=== PATIENT | female | born 1955 | race Hispanic/Latino ===

== ENCOUNTER 2018-05-11 20:25 | Observation (INO) | payer SELFPAY ==
--- NOTE | 2018-05-11 21:12 | RAD ---
RADIOGRAPH CHEST 1 VIEW: 05/11/18 at 9:08 p.m. HISTORY: 62-year-old female with chest pain. FINDINGS: There are no air space densities, pulmonary edema, or pneumothorax. The lateral costophrenic angles are sharp. IMPRESSION: No acute pulmonary findings. daniel pedraza POS: [facility]
[2018-05-11 21:26] LABS: ALT (SGPT) 10 U/L (8-55); AST (SGOT) 13 U/L (5-34); Albumin 4.1 g/dL (3.5-5.0); Alkaline Phosphatase 72 U/L (40-150); Anion Gap 13 mmol/L (10-20); BUN (Urea Nitrogen) 17 mg/dL (9.8-20.1); Bilirubin, Total 0.4 mg/dL (0.2-1.2); CK (CPK) 25 U/L (29-168); Calc. Creatinine Clearance 0 mL/min (70-130); Calcium 9.7 mg/dL (7.8-10.44); Carbon Dioxide 25 mmol/L (22-29); Chloride 109 mmol/L (98-107); Estimated GFR-MDRD 84; Globulin 3.3 g/dL (2.4-3.5); Glucose 121 mg/dL (70-105); Protein, Total 7.4 g/dL (6.0-8.3); Sodium 143 mmol/L (136-145)
[2018-05-11 21:47] LABS: #Basophils 0.1 thou/uL (0.0-0.2); #Eosinphils 0.2 thou/uL (0.0-0.7); #Lymphocytes 2.5 thou/uL (1.20-3.40); #Monocytes 0.3 thou/uL (0.11-0.59); #Neutrophils 2.8 thou/uL (1.40-6.50); %Basophils 0.9 % (0.0-1.0); %Eosinophils 2.8 % (0.0-10.0); %Lymphocytes 43.3 % (21.0-51.0); %Monocytes 4.8 % (0.0-10.0); %Neutrophils 48.2 % (42.0-75.0); Anisocytosis SLIGHT = 6-15 cells (100X) (0-5/hpf); Hemoglobin 11.5 g/dL (12.0-16.0); MDiff Complete? YES; Macrocytosis SLIGHT = 6-15 cells (100X) (0-5/hpf); Mean Corpuscular HGB CONC 36.9 g/dL (32.0-36.0); Mean Corpuscular Hemoglobin 46.2 pg (27.0-31.0); Mean Platelet Volume 6.7 fL (7.4-10.4); PLT Morphology Comment Appears Adequate; Platelet Count 155 thou/uL (130-400); RBC Distribution Width 11.9 % (11.5-14.5); Red Blood Cell (RBC) Count 2.49 mill/uL (4.20-5.40); Spherocytes SLIGHT = 1-5 cells (100X) (None Seen); Stomatocytes SLIGHT = 2-5 cells (100X) (0-1/hpf); White Blood Cell (WBC) Count 5.8 thou/uL (4.8-10.8)
[2018-05-11] MEDS ORDERED: Acetaminophen 500 MG TAB ONE (22:56)
[2018-05-12 01:04] VITALS: BMI 26.1
[2018-05-12 01:09] LABS: Troponin I 0.011 ng/mL (< 0.028)
[2018-05-12] MEDS: Ibuprofen 200 MG TAB PO PRN ×2 (02:03→09:22)
[2018-05-12] MEDS ORDERED: Benzonatate 100 MG CAP PO PRN (03:44)
[2018-05-12 03:46] LABS: Troponin I 0.011 ng/mL (< 0.028)
[2018-05-12] MEDS ORDERED: Regadenoson 0.4 MG/5 ML SYRINGE ONE (09:59)
[2018-05-12 10:19] LABS: ALT (SGPT) 9 U/L (8-55); AST (SGOT) 13 U/L (5-34); Albumin 3.7 g/dL (3.5-5.0); Alkaline Phosphatase 69 U/L (40-150); Anion Gap 10 mmol/L (10-20); BUN (Urea Nitrogen) 18 mg/dL (9.8-20.1); Bilirubin, Total 0.7 mg/dL (0.2-1.2); Calc. Creatinine Clearance 100 mL/min (70-130); Calcium 9.3 mg/dL (7.8-10.44); Carbon Dioxide 27 mmol/L (22-29); Cardiac Risk 3.2 (Less than 4.5); Chloride 108 mmol/L (98-107); Cholesterol 177 mg/dl (< 200 Desired); Estimated GFR-MDRD Greater than 90; Glucose 98 mg/dL (70-105); HDL Cholesterol 56 mg/dL (>60 Neg Risk); LDL Cholesterol, Calculated 98 mg/dL; Potassium 3.8 mmol/L (3.5-5.1); Protein, Total 6.7 g/dL (6.0-8.3); Sodium 141 mmol/L (136-145); Triglycerides 116 mg/dL (Less than 150)
[2018-05-12 10:21] LABS: #Eosinphils 0.2 thou/uL (0.0-0.7); #Lymphocytes 1.8 thou/uL (1.20-3.40); #Monocytes 0.3 thou/uL (0.11-0.59); #Neutrophils 2.4 thou/uL (1.40-6.50); %Basophils 0.3 % (0.0-1.0); %Eosinophils 3.7 % (0.0-10.0); %Lymphocytes 39.6 % (21.0-51.0); %Monocytes 5.6 % (0.0-10.0); %Neutrophils 50.8 % (42.0-75.0); Hemoglobin 11.4 g/dL (12.0-16.0); Mean Corpuscular HGB CONC 33.3 g/dL (32.0-36.0); Mean Corpuscular Hemoglobin 45.7 pg (27.0-31.0); Mean Platelet Volume 7.5 fL (7.4-10.4); Platelet Count 199 thou/uL (130-400); Red Blood Cell (RBC) Count 2.49 mill/uL (4.20-5.40); White Blood Cell (WBC) Count 4.7 thou/uL (4.8-10.8)
--- NOTE | 2018-05-12 14:26 | NM ---
NUCLEAR MEDICINE CARDIAC STRESS WITH EJECTION FRACTION AND WALL MOTION: HISTORY: Chest pain. COMPARISON: None. TECHNIQUE: The patient was administered 9.5 mCi of technetium-99m sestamibi for rest imaging and 32.2 mCi of freddy hnetium-99m sestamibi for stress imaging. Cardiac gating is performed. FINDINGS: Homogeneous distribution of the radiotracer in the left ventricle. No reversibility. No fixed defect. TID is 1.16. End-diastolic volume is 68 mL. End-systolic volume is 19 mL. CARDIAC GATING: Normal motion and thickening. 73% ejection fraction. IMPRESSION: 1. No reversible or fixed defect. 2. 73% ejection fraction. POS: [facility]
[2018-05-12 16:17] VITALS: BP 103/53; TEMP 97.8
--- NOTE | 2018-05-12 18:29 | HP ---
PRIMARY CARE PHYSICIAN: [facility]. CHIEF COMPLAINT: Chest pain, cough, and shortness of breath. HISTORY OF PRESENT ILLNESS: The patient reports she has been having intermittent chest pain and shortness of breath with exertion, worsening over the last month. The patient has a history of an MS several years ago and this feels similar to when she had that. She does report a cough, which is productive, which has been ongoing for the last 3 days. She is a smoker, reports smoking about half a pack a day. Reports that she does have morning coughing spells, but this is different. Does have some nasal congestion. Denies any fever or chills. Does have a history of hypertension, but reports she quit taking her medicine because it made her feel weak and fatigued more than normal. Family reports that she is normally very active. 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 Based on her symptoms and risk factors, decision was made to admit her to the observation unit. PAST MEDICAL HISTORY: Myocardial infarction many years ago. Reports history of hypertension. MEDICATIONS: She takes Tylenol and Motrin as needed. Reports that she is unable to remember the name of her blood pressure medication. PAST SURGICAL HISTORY: None. ALLERGIES: NONE. FAMILY HISTORY: Both parents had coronary artery disease. She denies any diabetes in the family. SOCIAL HISTORY: . Smokes half pack a day and has for many years. Drinks about 6 beers per day. REVIEW OF SYSTEMS: GENERAL: The patient reports some blurry vision, but reports that she wears reading glasses, which help. Denies any lightheadedness. EARS, NOSE, AND THROAT: Denies any ear pain or drainage. Denies any nasal bleeding. No trouble swallowing. CARDIAC: No orthopnea or dyspnea on exertion. RESPIRATORY: No wheezing. No asthma. She does have a productive cough for the last 3 days. This is in addition to her morning coughing spells that is productive of mucus. Does have a runny nose. GASTROINTESTINAL: Reports some mild nausea. Denies any vomiting, diarrhea, or abdominal pain. GENITOURINARY: Female. Denies any dysuria or hematuria. MUSCULOSKELETAL: No specific joint complaints. No swelling in her legs. No fall or injury. NEUROLOGIC: Denies any focal weakness or sensory changes. PSYCH: No history of any anxiety or depression. SKIN: No bruising, bleeding, or rash. HEME/LYMPH: No tender lymph nodes are noted. PHYSICAL EXAMINATION: VITAL SIGNS: Blood pressure 119/58, temperature is 98.1, pulse is 71, respiratory rate is 22, and she has 96% on room air. HEENT: Pupils are equal, round, and reactive. Extraocular muscles are intact. Sclerae are white. Nose has clear exudate. Mucous membranes are moist. Dental hygiene is good. NECK: Supple without JVD. No adenopathy. CHEST: Clear to auscultation. No respiratory distress. HEART: Regular rate and rhythm. S1 and S2. No murmurs or gallops. ABDOMEN: Soft. Bowel sounds are normal. EXTREMITIES: No cyanosis, clubbing, or edema. Pulses; radial, femoral, and pedis pulses are palpable and symmetric. SKIN: Warm, dry, and normal in color. JOINTS: No acute inflammation, swelling, or deformity. NEUROLOGIC: Moves all extremities. Deep tendon reflexes are symmetric. DIAGNOSTIC DATA: EKG done in the emergency room shows a normal sinus rhythm, 81 beats per minute, no ectopics, ST segments are normal, and T-waves are normal. LABORATORY DATA: The patient had a chest x-ray, which showed no acute pulmonary findings. White blood cell count is 4.7, hemoglobin is 11.4, hematocrit 34.2, and platelet counts are 199. Sodium 141, potassium 3.8, chloride 108, gap is 10, BUN is 18, creatinine is 0.61, GFR is estimated over 90, and glucose is 98. Troponin x3 are all lower than 0.010, which is undetectable. BNP is 30. Liver enzymes are unremarkable. Cholesterol; triglycerides are 116, total cholesterol is 177, LDL is 98, and HDL is 56. TSH is 3.49. ASSESSMENT AND PLAN: 1. Chest pain with dyspnea on exertion and increased fatigue. We will obtain an echocardiogram, do a stress test. 2. Cough. May repeat 2-view x-ray, provide antitussives. 3. History of hypertension. We will monitor blood pressure. 4. We will perform deep vein thrombosis and gastrointestinal prophylaxis while she is hospitalized. 5. Hospital course will be depending on clinical findings. Job ID: [id number]
--- NOTE | 2018-05-12 19:17 | CON ---
DATE OF CONSULTATION: 05/12/2018 REASON FOR CONSULTATION: Chest pain. HISTORY OF PRESENT ILLNESS: Ms. Paz is a pleasant 62-year-old female, who comes to the hospital for chest pain. I have seen her one time in the past in 2014. At which point, she came in complaining of chest pain. She was taken to the catheterization lab at that time and was found to have mild coronary artery disease. She was discharged home. I have never seen her in followup since. She came back because she was having episodes of chest pain, it was midsternal in nature. She underwent stress test later today. PAST MEDICAL HISTORY: 1. Mild coronary artery disease and heart catheterization 3 years ago. 2. GERD. MEDICATIONS: 1. Spiriva. 2. DuoNeb. 3. Ibuprofen. 4. Protonix 20 mg. 5. Tessalon Perles. PAST SURGICAL HISTORY: None. ALLERGIES: NO KNOWN DRUG ALLERGIES. FAMILY HISTORY: Mother of coronary artery disease. Father at 96 when he was found to have coronary artery disease. SOCIAL HISTORY: Smokes half a pack a day. Continues to drink daily. REVIEW OF SYSTEMS: A 12-point review of systems was done and found to be negative other than stated in the history of present illness. PHYSICAL EXAMINATION: VITAL SIGNS: Temperature 97.8, pulse 68, respiratory rate 20, saturating 97% on room air, and blood pressure 103/53. GENERAL: Awake, alert, and oriented x3, in no distress. HEENT: Normocephalic and atraumatic. NECK: Supple. LUNGS: Clear. CARDIOVASCULAR: S1 and S2. No S3 or S4. No murmurs. ABDOMEN: Soft. Positive bowel sounds. EXTREMITIES: No edema. SKIN: Warm and dry. LABORATORY DATA: Laboratory work was reviewed. CBC and CMP were reviewed. Troponin was negative x3. IMAGING: Imaging was reviewed. Stress test was normal. Normal EF. ASSESSMENT AND PLAN: 1. Chest pain, noncardiac in nature. She has negative stress today and mild coronary artery disease on catheterization just 3 years ago. Alternative causes of chest pain need to be looked for. She did have a CT of the chest during her last admission, which was unremarkable. 2. She may be discharged home from the cardiac perspective. 3. We will increase her PPI in case if this is related to reflux which she already has as well. 4. We will sign off. Please call with any questions. Job ID: [id number]
--- NOTE | 2018-05-13 16:56 | DIS ---
DATE OF ADMISSION: 05/11/2018 DATE OF DISCHARGE: 05/12/2018 PRIMARY CARE PHYSICIAN: None. GUMMING MACHINE OPERATOR: Dr. Hernandez, Cardiology. PROCEDURES PERFORMED: 1. The patient had a chest x-ray, which showed no acute cardiopulmonary findings. 2. The patient had a nuclear medicine stress test, which showed a normal motion and thickening of the cardiac wall, no reversible or fixed defect, 73% ejection fraction. 3. The patient also had an echocardiogram, which is not dictated yet with the findings. DISCHARGE DIAGNOSES: 1. Chest pain, etiology unknown. 2. History of hypertension, although she reports taking herself off medication and does not sure what it is. 3. Acute viral bronchitis. REVIEW OF SYSTEMS: The patient was seen this morning. Reports a productive cough. Reports clear rhinorrhea. Reports her chest pain has improved, but it is still present. Reports it is worse when she coughs. All other systems were reviewed and are negative. CONSTITUTIONAL: Denies any chills or fevers. EYES: Denies any vision changes. Denies any eye pain. ENT: Reports some rhinorrhea. Denies any ear pain or sore throat. CARDIOVASCULAR: Reports some chest pain. Denies any palpitations. RESPIRATORY: Reports productive cough. Reports pain with inspiration, which is mild. Does report her chest hurts more when she coughs. GI: Abdomen is soft and nontender. Denies any nausea, vomiting, or diarrhea. MUSCULOSKELETAL: Negative review of systems. SKIN: Negative review of systems. NEUROLOGIC: Negative review of systems. ENDOCRINE: Negative review of systems. HEME/LYMPHATIC: Negative system review. PSYCHIATRIC: Denies any history of anxiety or depression. All other review of systems are negative except what is listed in the hospital course. PHYSICAL EXAMINATION: VITAL SIGNS: Blood pressure 119/58, temperature 98.1, pulse 71, respirations are 22, and pulse ox is 96% on room air. CONSTITUTIONAL: The patient appears nontoxic, alert, and oriented to person, place, and time, in no apparent distress. HEENT: Head is atraumatic and normocephalic. Eyes; eyelids are normal to inspection. Pupils are equally round and reactive to light. Extraocular muscles are intact. ENT; clear nasal drainage is noted. Pharynx is nonerythematous. No exudates. Mucous membranes are moist. NECK: Normal range of motion. Trachea is midline. RESPIRATORY/CHEST: Good breath sounds. Normal chest movement. Chest expansion is equal. CARDIOVASCULAR: Heart sounds are regular rate and rhythm. S1 and S2. ABDOMEN: Female. Abdomen is nontender. Bowel sounds are heard. BACK: Normal inspection. Normal range of motion. No CVA tenderness. EXTREMITIES: Upper extremity findings include inspection normal. Range of motion is normal. Pulses are equal bilaterally. Lower extremities: Inspection is normal. Range of motion is normal. Pulses are equal bilaterally. No edema is noted. NEUROLOGIC: The patient is oriented to person, place, and time. Speech is normal. No focal or sensory deficits. SKIN: Warm, dry, and normal in color. PSYCHIATRIC: The patient has normal affect. She is alert and oriented to person, place, and time. HOSPITAL COURSE: The patient was admitted on 05/11/2018 for intermittent chest pain, shortness of breath, and fatigue, had been getting worse over the last month. The patient reports history of VA a few years ago and reports her pain feels similar. She does report a productive cough which was started 3 days ago with some clear rhinorrhea. Denies any fever or chills. She denies any diaphoresis or peripheral edema. Her risk score was 4 based on presentation and risk factors. The patient was admitted to the observation unit where she underwent stress test, results above, echocardiogram. The patient has remained stable. Vital signs have remained stable. Dr. Hernandez was consulted as outpatient, agreed to send home with some Protonix. HOME MEDICATIONS: The patient will be continued on home medications including; 1. Ibuprofen 400 mg p.o. q.6 hours as needed. 2. DuoNeb q.i.d. p.r.n. 3. Spiriva 1.25 mcg b.i.d. 4. Tessalon Perles 100 mg p.o. q.4 hours p.r.n. cough. 5. Protonix 20 mg p.o. daily. Protonix and Tessalon are new for this visit. ALLERGIES: NO KNOWN ALLERGIES. CONDITION: The patient is stable. DISPOSITION: The patient will be discharged to home. REFERRAL: The patient should establish care reports. She has gone to the [id number] in the past, recommended followup with the clinic within the next week. Job ID: [id number]
--- NOTE | 2018-05-18 15:28 | EKG ---
Test Reason : Blood Pressure : / mmHG Vent. Rate : 081 BPM Atrial Rate : 081 BPM P-R Int : 146 ms QRS Dur : 082 ms QT Int : 376 ms P-R-T Axes : 056 031 042 degrees QTc Int : 436 ms Normal sinus rhythm Normal ECG Confirmed by MICHEAL YAP, JOSH ([id number]), television news video editor RENITA ABEBE ([id number]) on 05/18/2018 3:27:42 PM Referred By: Confirmed By:JOSH BURTON MD
--- NOTE | 2018-05-18 17:42 | STRESS ---
Acquisition Time: 2018-05-12 10:52:19 Total Exercise Time: 00:01:00 Test Indications: CHEST PAIN Medications: Protocol: LEXISCAN Max HR: 111 BPM 69% of Pred: 160 BPM Max BP: 138/068 mmHG Max Work Load: 1.0 METS RESTING ECG: SINUS BRADYCARDIA AT 54 BPM SYMTPOMS: SHORTNESS OF BREATH, NAUSEA ECTOPY STRESS: NONE ECG STRESS: NO SIGNIFICANT CHANGES INTERPRETATION: NEGATIVE ECG / AWAIT NUCLEAR IMAGES FOR DEFINITIVE DIAGNOSIS Confirmed by FABIOLA BARCENAS M.D. ([id number]) on 05/18/2018 5:42:20 PM Referred By: SHAI MAURO Confirmed By:FABIOLA BARCENAS M.D.
== END 2018-05-12 17:23 | disposition home or self-care (01) ==
LOC: SCSER 20:25 → 2SW 21:58
PROVIDERS: ADMIT Hospitalist; ATTEND Hospitalist
DX: R07.89 Other chest pain (principal); I10 Essential (primary) hypertension; J20.8 Acute bronchitis due to other specified organisms; I25.2 Old myocardial infarction; F17.210 Nicotine dependence, cigarettes, uncomplicated; I25.10 Atherosclerotic heart disease of native coronary artery without angina pectoris; K21.9 Gastro-esophageal reflux disease without esophagitis
CPT/HCPCS: 36415; 71045; 78452; 80053; 80061; 82550; 83880; 84443; 84484; 85025; 90471; 90732; 93005; 93017; 93306; 94760; A9500; G0009; G0378; J2785

== ENCOUNTER 2019-07-27 05:39 | Inpatient (IN) | payer OTHER, SELFPAY ==
[2019-07-27] MEDS ORDERED: Morphine 4 MG/ML VIAL ONE (06:17)
[2019-07-27] MEDS ORDERED: Aspirin 325 MG TAB ONE (06:19)
--- NOTE | 2019-07-27 07:36 | RAD ---
Portable frontal chest radiograph: 07/27/2019 COMPARISON: 05/11/2018 HISTORY: Chest pain FINDINGS: Lungs are clear. Heart and mediastinal contours appear within normal limits. Mild increased linear interstitial density with pulmonary hyperinflation, stable. Stable atherosclerotic calcification of the aortic arch. IMPRESSION: No acute findings.
[2019-07-27 07:45] LABS: ALT (SGPT) 8 U/L (8-55); AST (SGOT) 13 U/L (5-34); Alkaline Phosphatase 76 U/L (40-110); Anion Gap 12 mmol/L (10-20); BUN (Urea Nitrogen) 16 mg/dL (9.8-20.1); Bilirubin, Total 0.5 mg/dL (0.2-1.2); CK (CPK) 39 U/L (29-168); Calc. Creatinine Clearance 0 mL/min (70-130); Calcium 9.2 mg/dL (7.8-10.44); Carbon Dioxide 25 mmol/L (23-31); Chloride 104 mmol/L (98-107); Estimated GFR-MDRD Greater than 90; Globulin 2.7 g/dL (2.4-3.5); Glucose 133 mg/dL (80-115); Lipase 54 U/L (8-78); Potassium 3.8 mmol/L (3.5-5.1); Protein, Total 6.7 g/dL (6.0-8.3); Sodium 137 mmol/L (136-145)
--- NOTE | 2019-07-27 07:55 | ULT ---
RIGHT UPER QUADRANT ULTRASOUND: INDICATION: Right upper quadrant pain with nausea and diarrhea. COMPARISON: None. FINDINGS: No focal hepatic lesion is evident. The liver measured 16.97 cm in its greatest longitudinal dimensi on. Gallbladder is mildly distended without gallbladder wall thickening or pericholecystic fluid. No son ographic Dorado's sign is reported. Common bile duct measures 1.8 mm, which is normal. The right kidney measures 9.4 x 3.9 x 4.3 cm. No focal renal lesion or hydronephrosis is evident. The visualized aspects of the pancreas appear within normal limits. IMPRESSION: No acute sonographic abnormality demonstrated. POS: [facility]
[2019-07-27 07:56] LABS: #Monocytes 0.3 thou/uL (0.11-0.59); #Neutrophils 6.3 thou/uL (1.40-6.50); %Basophils 0.3 % (0.0-1.0); %Eosinophils 0.5 % (0.0-10.0); %Lymphocytes 12.9 % (21.0-51.0); %Monocytes 4.2 % (0.0-10.0); %Neutrophils 82.2 % (42.0-75.0); Band 4 % (5-11); Hemoglobin 12.6 g/dL (12.0-16.0); Lymphocytes 10 % (21-51); MDiff Complete? YES; Macrocytosis MODERATE=16-30 cells (100X) (0-5/hpf); Mean Corpuscular HGB CONC 34.5 g/dL (32.0-36.0); Mean Corpuscular Hemoglobin 42.4 pg (27.0-31.0); Mean Platelet Volume 7.1 fL (7.4-10.4); Monocytes 3 % (0-10); Neutrophil 83 % (42-75); Platelet Count 198 thou/uL (130-400); Platelet Morphology Comment Appears Adequate; Polychromasia SLIGHT = 2-3 cells (100X) (0-2/hpf); RBC Distribution Width 17.9 % (11.5-14.5); Red Blood Cell (RBC) Count 2.96 mill/uL (4.20-5.40); White Blood Cell (WBC) Count 7.7 thou/uL (4.8-10.8)
[2019-07-27 08:24] LABS: CKMB 2.6 ng/mL (0-6.6)
[2019-07-27] MEDS ORDERED: Enoxaparin Sodium 60 MG/0.6 ML SYRINGE ONE (08:25)
--- NOTE | 2019-07-27 08:52 | CT ---
CT ANGIOGRAM CHEST WITH 3D RENDERING CT ANGIOGRAM ABDOMEN WITH 3D RENDERING: HISTORY: Chest pressure, shortness of breath, elevated D-dimer. COMPARISON: 01/06/2015. FINDINGS: Scattered atherosclerotic calcific plaques within the aorta and great vessels of the chest as well as the abdomen. No evidence for thoracic or abdominal aortic dissection. Three-vessel artery calcific disease. Contrast density within the pulmonary arteries is considerably less than in the aorta, but there is no convincing evidence for central pulmonary artery thrombosis. There is evidence for mini mal hepatomegaly. Visualized gallbladder, pancreas, spleen, adrenal glands, and kidneys are unremark able. Mild stenotic changes of the aortic bifurcation and right and left common iliac arteries secon mitzy to extensive calcified plaque. Grade I anterolisthesis of L5 on S1 with associated significant stenosis of the central canal. No free intraperitoneal fluid. No adenopathy. IMPRESSION: 1. No evidence for aortic dissection involving the chest or abdomen. 2. No convincing evidence for central pulmonary artery thrombosis. 3. Scattered atherosclerotic calcific plaque as above. Minimal hepatomegaly. Multilevel spinal can al stenosis including a grade I spondylolisthesis of L5 on S1. POS: [facility]
[2019-07-27] MEDS ORDERED: Iopamidol 370 76% 100 ML VIAL ONE (09:04)
[2019-07-27] MEDS ORDERED: Guaifenesin DM 100-10/5 ML UDCUP PO PRN (10:41)
[2019-07-27] MEDS ORDERED: Ondansetron PF 4 MG/2 ML Vial IVP PRN (10:41)
[2019-07-27] MEDS ORDERED: Bisacodyl 10 MG SUPP PR PRN (10:41)
[2019-07-27] MEDS ORDERED: Senokot S 8.6-50 MG TAB PO PRN (10:41)
[2019-07-27] MEDS ORDERED: HYDROcodone/Acetaminophen 5/325 mg Tablet PO PRN (10:41)
[2019-07-27] MEDS ORDERED: Sodium Chloride 0.9% 1,000 ML IV SCH (10:45)
[2019-07-27 11:07] LABS: Troponin I 0.892 ng/mL (< 0.028)
[2019-07-27 14:15] LABS: Troponin I 1.212 ng/mL (< 0.028)
[2019-07-27] MEDS: Nitroglycerin 2% Ointment 1 INCH/1 GM Packet TOP SCH ×2 (14:27→20:42)
[2019-07-27] MEDS: methylPREDNISolone Sod Succ 40 MG VIAL IVP SCH ×2 (14:29→20:42)
[2019-07-27] MEDS ORDERED: Iopamidol-370 76% 500 ML 1 ML ONE (14:35)
[2019-07-27] MEDS ORDERED: Metoprolol Tartrate 5 MG/5 ML VIAL IVP SCH (14:47)
[2019-07-27] MEDS ORDERED: Lidocaine 1% (PF) 30 ML VIAL ONE (14:53)
[2019-07-27] MEDS ORDERED: Heparin (Artline) 1,000 ML ONE ×2 (14:53→15:23)
--- NOTE | 2019-07-27 15:07 | HP ---
REASON FOR ADMISSION: 1. COPD exacerbation. 2. Chest pain to rule out acute coronary syndrome. HISTORY OF PRESENT ILLNESS: The patient gives history of having retrosternal chest pain around 3 a.m. This pain radiated to her left chest and to her neck and jaws and to the back. She initially thought it was acid reflux and tried taking [id number] medication, which did not seem to help. The patient in fact woke up prior to the episode of chest pain because her neighbors were arguing and fighting. She got nervous and was anxious as well. The patient mentions that 2 days back, the patient had gone to see a primary care physician at [facility] and was given amoxicillin prescription for upper respiratory tract infection with cough and expectoration of yellow sputum. No fever at home. Currently, the patient has no chest pain. PAST MEDICAL AND SURGICAL HISTORY: Stress test done in 05/2018, showed no reversible or fixed defect. Cardiac catheterization done in 01/2015, showed mild coronary artery disease. She also had mild inferior wall hypokinesis. LAD had luminal irregularities and first diagonal had 20% ostial lesion. There was also 20% circumflex lesion. COPD with ongoing smoking history. Hypertension and tobacco abuse. CURRENT MEDICATIONS: The patient is on: 1. Lisinopril 2.5 mg daily. 2. Amoxicillin 250 mg p.o. three times daily. 3. Spiriva inhaler 18 mcg daily. ALLERGIES: NO KNOWN DRUG ALLERGIES. PERSONAL HISTORY: Smokes half pack a day and has been doing so for the last 40 years. She also apparently drinks alcohol on daily basis. Per prior records, the patient has admitted to drinking more than 6 beers per day. Does not abuse drugs. Lives with her . FAMILY HISTORY: Mother at the age of 85. Father at the age of 97 both from natural causes. The patient ambulates by herself. CODES STATUS: Full. REVIEW OF SYSTEMS: CONSTITUTIONAL: Negative for weight loss or gain, ability to conduct usual activities. SKIN: Negative for rash, itching. EYES: Negative for double vision, pain. ENT/MOUTH: Negative for nose bleeding, neck stiffness, pain, tenderness. CARDIOVASCULAR: Negative for palpitations, dyspnea on exertion, orthopnea. RESPIRATORY: Negative for shortness of breath, wheezing, cough, hemoptysis, fever or night sweats. GASTROINTESTINAL: Negative for poor appetite, abdominal pain, heartburn, nausea, vomiting, constipation, or diarrhea. GENITOURINARY: Negative for urgency, frequency, dysuria, nocturia. MUSCULOSKELETAL: Negative for pain, swelling. NEUROLOGIC/PSYCHIATRIC: Negative for anxiety, depression. ALLERGY/IMMUNOLOGIC: Negative for skin rash, bleeding tendency. PHYSICAL EXAMINATION: GENERAL: The patient is a 64-year-old female, who is currently not in any acute distress. VITAL SIGNS: Blood pressure 150/90, pulse 86 per minute, respiratory rate 20 per minute, temperature 98.3 degrees Fahrenheit, and saturating 98% on room air. NECK: Supple. No elevated JVD. HEENT: Eyes; extraocular muscles intact. Pupils reacting to light. Oral cavity, mucous membranes are moist. No exudates or congestion. CARDIOVASCULAR SYSTEM: S1-S2 heard. Regular rhythm. RESPIRATORY SYSTEM: Air entry 1+ bilateral. Scattered rhonchi and wheezes plus bilateral. No rales. ABDOMEN: Soft. Bowel sounds heard. No tenderness, rigidity, or guarding. EXTREMITIES: No peripheral edema or calf tenderness. VASCULAR SYSTEM: Peripheral pulses 1+ bilateral. No ischemic ulcerations or gangrene. CENTRAL NERVOUS SYSTEM: No gross focal motor deficits noted. The patient is alert, awake, and oriented well. PSYCHIATRIC : The patient's mood is euthymic. No hallucinations or delusions. DIAGNOSTIC DATA: EKG done shows normal sinus rhythm at 65 beats per minute. There is questionable Q-wave seen in V1 and V2. Ultrasound of the right upper quadrant done showed no gallbladder wall thickening or pericholecystic fluid. Common bile duct was 1.8 cm. There is no other abnormality seen. CT dissection protocol done showed no evidence of dissection. There was no central pulmonary artery thrombosis seen. There is scattered atherosclerotic calcific plaque. The patient has multilevel spinal canal stenosis. LABORATORY DATA: Troponin I of 0.31, peaking up to 1.2. CK-MB 2.6. BNP 45. Albumin is 4.0. Lipase 54. BUN 16, creatinine 0.5, and serum glucose 133. Electrolytes stable. White count of 7, H and H of 12 and 36, platelet count is 198, and MCV is 123 with 82% neutrophils. CLINICAL IMPRESSION AND PLAN: The patient will be admitted to telemetry for chronic obstructive pulmonary disease exacerbation with likely type 2 myocardial infarction. She has had prior cardiac catheterization done in 2014, which showed mild coronary artery disease with luminal irregularities. Ms. Paz also has history of drinking heavy and tobacco abuse with risk factors for coronary artery disease. We will obtain consultation with Dr. Thornton, who is on-call for Dr. Hernandez. We will continue her on Augmentin, DuoNeb q.6 hourly 12, Solu-Medrol 40 mg q.8 hourly, nitroglycerin paste half-inch q.8 hourly, normal saline at 70 mL per hour, and Lovenox 60 mg subcu q.12 hourly. She will also be on full-dose aspirin and Pepcid as well. We will continue to closely monitor her on telemetry. Job ID: [id number]
[2019-07-27] MEDS ORDERED: Fentanyl 100 MCG/2 ML VIAL ONE (15:26)
[2019-07-27] MEDS ORDERED: Midazolam HCl 2 mg/2 ml Vial ONE (15:26)
--- NOTE | 2019-07-27 15:28 | CON ---
DATE OF CONSULTATION: REASON FOR CONSULTATION: Non-Q wave myocardial infarction. HISTORY OF PRESENT ILLNESS: Ms. Paz is a 64-year-old woman who began having chest pain this morning. No nausea, vomiting or associated symptoms. The pain was severe. It is subsided, but continues to have discomfort. Her troponin continues to be trending upward. PAST MEDICAL HISTORY: Mild CAD diagnosed three years ago, acid reflux, tobacco abuse, COPD. HOME MEDICATIONS: Include; 1. Spiriva. 2. DuoNeb. 3. Protonix. 4. Tessalon Perles. PAST SURGICAL HISTORY: None. ALLERGIES: NONE. FAMILY HISTORY: Negative for CAD. SOCIAL HISTORY: Positive smoking. Positive alcohol. REVIEW OF SYSTEMS: A 10-point review of systems is reviewed as above, otherwise negative. PHYSICAL EXAMINATION: GENERAL: Patient is a pleasant female who is in no acute distress. She does appear older than stated age. VITAL SIGNS: Blood pressure 130/57, pulse 81, temperature 97.9. NEUROLOGIC: The patient is alert and oriented x3 with no focal neurologic deficits. HEENT: Sclerae without icterus. Mouth has moist mucous membranes with normal pallor. NECK: No JVD. Carotid upstroke brisk. No bruits bilaterally. LUNGS: Clear to auscultation with unlabored respirations. BACK: No scoliosis or kyphosis. CARDIAC: Regular rate and rhythm with normal S1 and S2. No S3 or S4 noted. No significant rubs, murmurs, thrills, or gallops noted throughout the precordium. PMI is not displaced. There is no parasternal heave. ABDOMEN: Soft, nontender, nondistended. No peritoneal signs present. No hepatosplenomegaly. No abnormal striae. EXTREMITIES: 2+ femoral and 2+ dorsalis pedis pulses. No cyanosis, clubbing, or edema. SKIN: No gross abnormalities. PERTINENT LABORATORY DATA: Hemoglobin 12.6. Creatinine 0.56. Initial troponin 0.3 increased to 1.2. EKG shows normal sinus rhythm with diffuse ST-segment elevation. IMPRESSION: 1. Unstable angina. 2. Tobacco abuse. RECOMMENDATIONS: Symptoms could certainly be due to pericarditis, but given her history is more suggestive of unstable angina. We therefore recommend coronary angio with possible PCI risks. I discussed the procedure in full detail with Ms. Paz. Risks included, but not limited to the following: , stroke, AK, need for emergency surgery, loss of limb, bleeding, and infection, as well as a reaction to the dye causing kidney failure and needing long-term dialysis. I also discussed the risks of PCI to include all of the above including coronary dissection and perforation in addition to acute stent thrombosis and restenosis. All questions about the procedure were answered. Given the above, the patient agreed to proceed with coronary angiography and possible PCI. All questions answered. Also discussed drug coated versus nondrug coated stent placement. There were no complications proceeded with drug coated stent placement if needed. She can take Plavix and aspirin for at least a year. Further recommendations pending the above. Job ID: [id number]
[2019-07-27] MEDS ORDERED: Enoxaparin Sodium 40 MG/0.4 ML SYRINGE SC SCH ×2 (15:30→21:00)
[2019-07-27] MEDS ORDERED: Atropine Sulfate 1 mg/10 ml Syringe ONE (15:36)
[2019-07-27] MEDS ORDERED: Acetaminophen/Codeine 30-300mg Tablet PO PRN ×2 (15:54)
[2019-07-27] MEDS ORDERED: Nitroglycerin 0.4 MG TAB (25 Tab Bottle) SL PRN (15:54)
[2019-07-27] MEDS ORDERED: Sodium Chloride 0.9% 200 ML IV PRN (15:54)
[2019-07-27] MEDS ORDERED: Enoxaparin Sodium 60 MG/0.6 ML SYRINGE SC SCH (16:45)
[2019-07-27] MEDS: Sodium Chloride 0.9% 1,000 ML IV SCH (17:12)
[2019-07-27] MEDS: Benzonatate 100 MG CAP PO PRN (20:39)
[2019-07-27] MEDS: Amoxicillin/Potassium Clav 875 MG TAB PO SCH (20:39)
[2019-07-27] MEDS: Metoprolol Tartrate 25 MG TAB PO SCH (20:40)
[2019-07-27] MEDS: Famotidine 20 MG TAB PO SCH (20:40)
[2019-07-28] MEDS: Sodium Chloride 0.9% 1,000 ML IV SCH (01:13)
[2019-07-28 04:59] LABS: #Lymphocytes 1.4 thou/uL (1.20-3.40); #Monocytes 0.2 thou/uL (0.11-0.59); #Neutrophils 4.5 thou/uL (1.40-6.50); %Basophils 0.7 % (0.0-1.0); %Eosinophils 0.1 % (0.0-10.0); %Monocytes 2.6 % (0.0-10.0); %Neutrophils 73.6 % (42.0-75.0); Hemoglobin 12.5 g/dL (12.0-16.0); Mean Corpuscular HGB CONC 34.9 g/dL (32.0-36.0); Mean Corpuscular Hemoglobin 42.9 pg (27.0-31.0); Mean Platelet Volume 7.6 fL (7.4-10.4); Platelet Count 205 thou/uL (130-400); RBC Distribution Width 17.9 % (11.5-14.5); Red Blood Cell (RBC) Count 2.92 mill/uL (4.20-5.40); White Blood Cell (WBC) Count 6.2 thou/uL (4.8-10.8)
[2019-07-28 05:11] LABS: Anion Gap 12 mmol/L (10-20); BUN (Urea Nitrogen) 10 mg/dL (9.8-20.1); Calc. Creatinine Clearance 89 mL/min (70-130); Calcium 9.5 mg/dL (7.8-10.44); Carbon Dioxide 26 mmol/L (23-31); Cardiac Risk 2.7 (Less than 4.5); Chloride 109 mmol/L (98-107); Cholesterol 194 mg/dl (< 200 Desired); Estimated GFR-MDRD Greater than 90; Glucose 138 mg/dL (80-115); HDL Cholesterol 72 mg/dL (>60 Neg Risk); LDL Cholesterol, Calculated 99 mg/dL; Potassium 4.3 mmol/L (3.5-5.1); Sodium 143 mmol/L (136-145); Triglycerides 116 mg/dL (Less than 150)
[2019-07-28] MEDS: Nitroglycerin 2% Ointment 1 INCH/1 GM Packet TOP SCH ×3 (05:57→21:02)
[2019-07-28] MEDS: methylPREDNISolone Sod Succ 40 MG VIAL IVP SCH ×3 (05:57→21:00)
[2019-07-28] MEDS: Famotidine 20 MG TAB PO SCH ×2 (08:35→20:59)
[2019-07-28] MEDS: Aspirin 325 mg Enteric Coated Tablet PO SCH (08:35)
[2019-07-28] MEDS: Amoxicillin/Potassium Clav 875 MG TAB PO SCH ×2 (08:35→20:58)
[2019-07-28] MEDS: Metoprolol Tartrate 25 MG TAB PO SCH ×2 (08:36→20:59)
[2019-07-28] MEDS ORDERED: Enoxaparin Sodium 40 MG/0.4 ML SYRINGE SC SCH (09:00)
[2019-07-28] MEDS ORDERED: FLU VACC QS2019-20(6MOS UP)/PF 60 MCG/0.5 ML SYRINGE IM ONE (09:00)
--- NOTE | 2019-07-28 09:27 | ULT ---
Focused vascular ultrasound of the right inguinal region: 07/28/2019 COMPARISON: None HISTORY: Pain in the right inguinal region following cardiac catheterization TECHNIQUE: Focused grayscale sonographic assessment of the right inguinal region provided. In additio n, the right common femoral artery and right common femoral vein and the right inguinal region are assessed with color flow and spectral analysis FINDINGS: The right common femoral artery and right common femoral vein in the right inguinal region are patent and demonstrate appropriate flow direction. Common femoral artery demonstrates a normal arterial waveform. No sonographic evidence of hematoma or pseudoaneurysm. IMPRESSION: Focused vascular ultrasound of the right inguinal region demonstrates no evidence for hem atoma or pseudoaneurysm.
[2019-07-28 12:01] VITALS: BMI 24.5
--- NOTE | 2019-07-28 14:13 | PDOC.HOSPP ---
- Subjective Subjective: Seen and examined on the medical unit with telemetry. Patient complaining of right groin pain, this is worse when palpated. However I do not feel any bulge or abnormalities to suggest aneurysm. Patient does admit to tobacco abuse, was counseled on abstinence. Patient recommended that she must change risk factors for coronary artery disease. Time was given for questions, all answered in detail. - Objective Vital Signs & Weight: Vital Signs (12 hours) Temp Pulse Resp BP Pulse Ox 07/28/19 13:17 64 16 07/28/19 11:15 96.5 F L 65 16 131/62 99 07/28/19 07:49 96.4 F L 82 16 133/71 98 07/28/19 07:13 96 07/28/19 07:12 71 16 07/28/19 04:30 95 07/28/19 04:19 97.9 F 62 18 115/71 98 Weight Admit Weight 135 lb 4.8 oz Weight 134 lb 4.8 oz I&O: 07/27/19 07/28/19 07/29/19 06:59 06:59 06:59 Intake Total 480 Output Total 1490 Balance -1010 Result Diagrams: 07/28/19 04:31 07/28/19 04:31 Radiology Reviewed by me: Yes Hospitalist ROS - Review of Systems All other systems reviewed; all pertinent +/- noted in HPI/Subj - Medication Medications: Active Medications Generic Name Dose Route Start Last Admin Trade Name Freq PRN Reason Stop Dose Admin Acetaminophen/Codeine Phosphate 1 tab 07/27/19 15:54 07/27/19 20:39 Tylenol #3 PO 1 tab Q4H PRN Administration Mild Pain (1-3) Albuterol/Ipratropium 3 ml 07/27/19 13:00 07/28/19 13:17 Duoneb NEB 3 ml [id number] BO Administration Amoxicillin/Clavulanate Potassium 875 mg 07/27/19 21:00 07/28/19 08:35 Augmentin PO 875 mg BID BO Administration Aspirin 325 mg 07/28/19 09:00 07/28/19 08:35 Ecotrin PO 325 mg DAILY BO Administration Benzonatate 200 mg 07/27/19 10:41 07/27/19 20:39 Tessalon PO 200 mg Q4H PRN Administration Cough Famotidine 20 mg 07/27/19 21:00 07/28/19 08:35 Pepcid PO 20 mg BID BO Administration Methylprednisolone Sodium Succinate 40 mg 07/27/19 14:00 07/28/19 13:59 Solu-Medrol IVP 40 mg Q8HR BO Administration Metoprolol Tartrate 12.5 mg 07/27/19 21:00 07/28/19 08:36 Lopressor PO 12.5 mg BID BO Administration Nitroglycerin 0.5 inch 07/27/19 14:00 07/28/19 13:58 Nitro-Bid 2% Ointment TOP 0.5 inch Q8HR BO Administration - Exam General Appearance: NAD, awake alert Eye: PERRL ENT: normocephalic atraumatic, moist mucosa Neck: supple, symmetric, no lymphadenopathy Heart: no murmur, no gallops, no rubs Respiratory: CTAB, no wheezes, no rales, no ronchi, normal chest expansion Gastrointestinal: soft, non-tender, no guarding, no rigidity Extremities: no edema Extremities - other findings: right groin with very mild bruising, No palpable swelling or abnormalities Skin: no lesions, no rashes Neurological: cranial nerve grossly intact, no weakness Musculoskeletal: normal strength, no muscle wasting Psychiatric: normal affect, normal behavior, A&O x 3 Hosp A/P (1) Atypical chest pain Code(s): R07.89 - OTHER CHEST PAIN Status: Acute (2) Bronchitis Code(s): J40 - BRONCHITIS, NOT SPECIFIED ACUTE OR CHRONIC Status: Acute (3) Chest pain Code(s): R07.9 - CHEST PAIN, UNSPECIFIED Status: Acute (4) Smoking 1/2 pack a day or less Code(s): F17.210 - NICOTINE DEPENDENCE, CIGARETTES, UNCOMPLICATED Status: Acute (5) Subendocardial infarction, initial episode of care Code(s): I21.4 - NON-ST ELEVATION (NSTEMI) MYOCARDIAL INFARCTION Status: Acute - Plan Plan: medical unit telemetry cardiology consultation, recommendations appreciated post cath care patient with discomfort in the right groin at cath site, there is no palpable masses or lesion ultrasound arterial, right groin negative for aneurysm or pseudoaneurysm Echo cardiac regimen blood pressure control blood sugar control abstinence from tobacco use, counseling provided G.I. prophylaxis DVT prophylaxis
--- NOTE | 2019-07-28 14:59 | PDOC.CPN ---
- Subjective Date: 07/28/19 Time: 14:58 Interval history: She is doing well. No chest pain. Her groin hurts when she coughs in the on the insertion site. - Review of Systems General: denies: fever/chills, weight/appetite/sleep changes, night sweats, fatigue Respiratory: denies: cough, congestion, shortness of breath, exercise intolerance Cardiovascular: denies: chest pain, palpitation, edema, paroxysmal nocturnal dyspnea, orthopnea Gastrointestinal: denies: nausea, vomiting, diarrhea, constipation, abd pain, GI bleeding Musculoskeletal: denies: pain, tenderness, stiffness, swelling, arthritis/ arthralgias Neurological: denies: numbness, syncope, seizure, weakness - Objective Allergies/Adverse Reactions: Allergies Allergy/AdvReac Type Severity Reaction Status Date / Time No Known Allergies Allergy Verified 07/27/19 17:19 Visit Medications: Current Medications Acetaminophen (Tylenol) 650 mg PO Q4H PRN PRN Reason: Headache/Fever/Mild Pain (1-3) Acetaminophen/Codeine Phosphate (Tylenol #3) 1 tab PO Q4H PRN PRN Reason: Mild Pain (1-3) Last Admin: 07/27/19 20:39 Dose: 1 tab Acetaminophen/Codeine Phosphate (Tylenol #3) 2 tab PO Q4H PRN PRN Reason: Moderate Pain (4-6) Hydrocodone Bitart/Acetaminophen ([place] 5/325) 1 tab PO Q4H PRN PRN Reason: Moderate Pain (4-6) Albuterol/Ipratropium (Duoneb) 3 ml NEB [id number] [facility] Last Admin: 07/28/19 13:17 Dose: 3 ml Amoxicillin/Clavulanate Potassium (Augmentin) 875 mg PO BID [facility] Last Admin: 07/28/19 08:35 Dose: 875 mg Aspirin (Ecotrin) 325 mg PO DAILY [facility] Last Admin: 07/28/19 08:35 Dose: 325 mg Benzonatate (Tessalon) 200 mg PO Q4H PRN PRN Reason: Cough Last Admin: 07/27/19 20:39 Dose: 200 mg Bisacodyl (Dulcolax) 10 mg [place] DAILYPRN PRN PRN Reason: Constipation Famotidine (Pepcid) 20 mg PO BID [facility] Last Admin: 07/28/19 08:35 Dose: 20 mg Guaifenesin/Dextromethorphan (Robitussin Dm) 15 ml PO Q4H PRN PRN Reason: Cough Sodium Chloride (Normal Saline 0.9%) 200 mls @ 0 mls/hr IV ONE PRN PRN Reason: SBP < 90 Stop: 07/29/19 15:55 Methylprednisolone Sodium Succinate (Solu-Medrol) 40 mg IVP Q8HR [facility] Last Admin: 07/28/19 13:59 Dose: 40 mg Metoprolol Tartrate (Lopressor) 12.5 mg PO BID [facility] Last Admin: 07/28/19 08:36 Dose: 12.5 mg Nitroglycerin (Nitro-Bid 2% Ointment) 0.5 inch TOP Q8HR [facility] Last Admin: 07/28/19 13:58 Dose: 0.5 inch Nitroglycerin (Nitrostat) 0.4 mg SL Q5MIN PRN PRN Reason: Chest Pain Ondansetron HCl (Zofran) 4 mg IVP Q6H PRN PRN Reason: Nausea/Vomiting Senna/Docusate Sodium (Senokot S) 2 tab PO BIDPRN PRN PRN Reason: Constipation Vital Signs & Weight: Vital Signs Temp Pulse Resp BP Pulse Ox 07/28/19 13:17 64 16 07/28/19 11:15 96.5 F L 65 16 131/62 99 07/28/19 07:49 96.4 F L 82 16 133/71 98 07/28/19 07:13 96 07/28/19 07:12 71 16 07/28/19 04:30 95 07/28/19 04:19 97.9 F 62 18 115/71 98 Admit Weight 135 lb 4.8 oz Weight 134 lb 4.8 oz - Physical Exam General: alert & oriented x3 HEENT: mucus membranes moist Neck: supple neck Cardiac: regular rate and rhythm Lungs: clear to auscultation Neuro: grossly intact Abdomen: active bowel sounds Extremities: no edema, other: (Right groin without mass or hematoma, no bruit.) Skin: clear Musculoskeletal: no pain - Labs Result Diagrams: 07/28/19 04:31 07/28/19 04:31 Troponin/CKMB CK-MB (CK-2) 2.6 ng/mL (0-6.6) 07/27/19 07:08 Troponin I 1.212 ng/mL (< 0.028) H* 07/27/19 13:28 - Telemetry Sinus rhythms and dysrhythmias: sinus rhythm - Assessment/Plan Assessment/Plan: 1. Takotsubo CM 2. Type 2 demand ishcemia. 3. Tobacco use 4. COPD PLAN: - EF at 35-40%, no indication for life vest - Continue low dose BB and will low dose ACEI. - Home in next 24 to 48 hrs if she remains stable.
[2019-07-29] MEDS: Benzonatate 100 MG CAP PO PRN ×3 (02:01→21:14)
[2019-07-29] MEDS: methylPREDNISolone Sod Succ 40 MG VIAL IVP SCH ×3 (05:53→21:11)
[2019-07-29] MEDS: Nitroglycerin 2% Ointment 1 INCH/1 GM Packet TOP SCH (05:53)
[2019-07-29] MEDS: Metoprolol Tartrate 25 MG TAB PO SCH (08:59)
[2019-07-29] MEDS: Famotidine 20 MG TAB PO SCH ×2 (09:00→21:11)
[2019-07-29] MEDS ORDERED: Lisinopril 2.5 MG TAB PO SCH (09:00)
[2019-07-29] MEDS: Amoxicillin/Potassium Clav 875 MG TAB PO SCH ×2 (09:00→21:10)
[2019-07-29] MEDS: Aspirin 325 mg Enteric Coated Tablet PO SCH (09:00)
[2019-07-29] MEDS: Acetaminophen 325 MG TAB PO PRN ×3 (09:05→21:14)
--- NOTE | 2019-07-29 11:44 | PDOC.CPN ---
- Subjective Date: 07/29/19 Time: 12:00 Interval history: Ms. Paz is awake, sitting up, family at bedside, eating lunch. Had episode bradycardia earlier, felt "weak and dizzy" with this. Improved now, no further complaints, NS bolus in progress. Denies chest pain or tightness. Describes mild exertional SOB. Denies cough, N /V/D. Right groin cath site tender to palpation. Denies back pain. No overnight events on telemetry. Brief guanaco episode, resolved. - Review of Systems General: denies: fever/chills, weight/appetite/sleep changes, night sweats, fatigue Respiratory: reports: shortness of breath (exertional, no change since last seen.) Cardiovascular: denies: chest pain, palpitation, edema, paroxysmal nocturnal dyspnea, orthopnea Gastrointestinal: denies: nausea, vomiting, diarrhea, constipation, abd pain, GI bleeding Musculoskeletal: reports: tenderness (right groin site tender to palpation) - Objective Allergies/Adverse Reactions: Allergies Allergy/AdvReac Type Severity Reaction Status Date / Time No Known Allergies Allergy Verified 07/27/19 17:19 Visit Medications: Current Medications Acetaminophen (Tylenol) 650 mg PO Q4H PRN PRN Reason: Headache/Fever/Mild Pain (1-3) Last Admin: 07/29/19 09:05 Dose: 650 mg Acetaminophen/Codeine Phosphate (Tylenol #3) 1 tab PO Q4H PRN PRN Reason: Mild Pain (1-3) Last Admin: 07/27/19 20:39 Dose: 1 tab Acetaminophen/Codeine Phosphate (Tylenol #3) 2 tab PO Q4H PRN PRN Reason: Moderate Pain (4-6) Hydrocodone Bitart/Acetaminophen ([place] 5/325) 1 tab PO Q4H PRN PRN Reason: Moderate Pain (4-6) Albuterol/Ipratropium (Duoneb) 3 ml NEB [id number] [facility] Last Admin: 07/29/19 08:14 Dose: Not Given Amoxicillin/Clavulanate Potassium (Augmentin) 875 mg PO BID [facility] Last Admin: 07/29/19 09:00 Dose: 875 mg Aspirin (Ecotrin) 325 mg PO DAILY [facility] Last Admin: 07/29/19 09:00 Dose: 325 mg Benzonatate (Tessalon) 200 mg PO Q4H PRN PRN Reason: Cough Last Admin: 07/29/19 06:00 Dose: 200 mg Bisacodyl (Dulcolax) 10 mg [place] DAILYPRN PRN PRN Reason: Constipation Famotidine (Pepcid) 20 mg PO BID [facility] Last Admin: 07/29/19 09:00 Dose: 20 mg Guaifenesin/Dextromethorphan (Robitussin Dm) 15 ml PO Q4H PRN PRN Reason: Cough Sodium Chloride (Normal Saline 0.9%) 200 mls @ 0 mls/hr IV ONE PRN PRN Reason: SBP < 90 Stop: 07/29/19 15:55 Sodium Chloride (Normal Saline 0.9%) 500 mls @ 150 mls/hr IV .Q3H20M [facility] Stop: 07/29/19 15:04 Lisinopril (Zestril) 1.25 mg PO DAILY [facility] Last Admin: 07/29/19 08:59 Dose: 1.25 mg Methylprednisolone Sodium Succinate (Solu-Medrol) 40 mg IVP Q8HR [facility] Last Admin: 07/29/19 05:53 Dose: 40 mg Nitroglycerin (Nitro-Bid 2% Ointment) 0.5 inch TOP Q8HR [facility] Last Admin: 07/29/19 05:53 Dose: 0.5 inch Nitroglycerin (Nitrostat) 0.4 mg SL Q5MIN PRN PRN Reason: Chest Pain Ondansetron HCl (Zofran) 4 mg IVP Q6H PRN PRN Reason: Nausea/Vomiting Senna/Docusate Sodium (Senokot S) 2 tab PO BIDPRN PRN PRN Reason: Constipation Vital Signs & Weight: Vital Signs Temp Pulse Resp BP Pulse Ox 07/29/19 08:47 98.6 F 63 16 117/78 97 07/29/19 03:09 97.6 F 57 L 16 121/62 96 Admit Weight 135 lb 4.8 oz Weight 134 lb 4.8 oz - Quality Measures Condition: Heart Failure CV meds: Beta Aries: No, BRIAN/ARB: Yes, Statin: No, ASA: Yes, Plavix/Effient/ Brilinta: No, Anticoagulant: No - Medication Contraindications No Beta Aries reason: Beta aries not tolerated (Isolated episode bradycardia , symptomatic) - Physical Exam General: alert & oriented x3, appears well, no apparent distress HEENT: mucus membranes moist Neck: supple neck, no JVD/HJR Cardiac: regular rate and rhythm, no murmur, S1/S2 Lungs: clear to auscultation, normal breath sounds, no wheeze, rales, rhonchi Neuro: grossly intact Abdomen: unremarkable Extremities: no edema Skin: clear (right groin without hematoma, mass, or oozing. Scant ecchymosis.) - Labs Result Diagrams: 07/28/19 04:31 07/28/19 04:31 Troponin/CKMB CK-MB (CK-2) 2.6 ng/mL (0-6.6) 07/27/19 07:08 Troponin I 1.212 ng/mL (< 0.028) H* 07/27/19 13:28 - Telemetry Sinus rhythms and dysrhythmias: sinus rhythm (Intermittent SB, rate upper 50s) - Assessment/Plan Assessment/Plan: 1. Takotsubo CM 2. Mild CAD 3. Mixed Hyperlipidemia 4. Type 2 demand ishcemia. 5. Tobacco use 6. COPD PLAN: -EF at 35-40%, no indication for life vest -Continue low dose ACEi, titrate up as tolerated. Isolated episode bradycardia with low-dose metoprolol, hold for now, bolus in progress. -Add statin (LDL 99). -Discussed importance of complete tobacco cessation, dietary modification. -Right groin U/S negative for pseudoaneurysm -Home tomorrow if she remains stable.
[2019-07-29] MEDS ORDERED: Sodium Chloride 0.9% 500 ML IV SCH (11:45)
--- NOTE | 2019-07-29 16:26 | PDOC.HOSPP ---
- Subjective Subjective: Seen and examined this a.m. on the medical unit with telemetry. Patient states that she's feeling weak, dizzy, with nausea though she has not vomited. She is found have episode of bradycardia and cardiology has stopped her beta balta. Will continue to monitor overnight and if stable may consider DC in the next 24 to 48 hours. - Objective Vital Signs & Weight: Vital Signs (12 hours) Temp Pulse Pulse Pulse Resp BP BP 07/29/19 16:21 60 07/29/19 15:43 99.0 F 62 16 07/29/19 12:26 55 L 59 L 115/57 L 121/60 07/29/19 12:24 98.3 F 58 L 15 07/29/19 08:47 98.6 F 63 16 BP Pulse Ox Pulse Ox Pulse Ox 07/29/19 16:21 130/60 07/29/19 15:43 98/52 L 98 07/29/19 12:26 98 99 07/29/19 12:24 132/61 99 07/29/19 08:47 117/78 97 Weight Admit Weight 135 lb 4.8 oz Weight 134 lb 4.8 oz I&O: 07/28/19 07/29/19 07/30/19 06:59 06:59 06:59 Intake Total 480 300 Output Total 1490 1300 Balance -1010 -1000 Result Diagrams: 07/28/19 04:31 07/28/19 04:31 Radiology Reviewed by me: Yes Hospitalist ROS - Review of Systems All other systems reviewed; all pertinent +/- noted in HPI/Subj - Medication Medications: Active Medications Generic Name Dose Route Start Last Admin Trade Name Freq PRN Reason Stop Dose Admin Acetaminophen 650 mg 07/27/19 10:41 07/29/19 09:05 Tylenol PO 650 mg Q4H PRN Administration Headache/Fever/Mild Pain (1-3) Acetaminophen/Codeine Phosphate 1 tab 07/27/19 15:54 07/27/19 20:39 Tylenol #3 PO 1 tab Q4H PRN Administration Mild Pain (1-3) Albuterol/Ipratropium 3 ml 07/27/19 13:00 07/29/19 13:20 Duoneb NEB Not Given [id number] BO Amoxicillin/Clavulanate Potassium 875 mg 07/27/19 21:00 07/29/19 09:00 Augmentin PO 875 mg BID BO Administration Aspirin 325 mg 07/28/19 09:00 07/29/19 09:00 Ecotrin PO 325 mg DAILY BO Administration Benzonatate 200 mg 07/27/19 10:41 07/29/19 06:00 Tessalon PO 200 mg Q4H PRN Administration Cough Famotidine 20 mg 07/27/19 21:00 07/29/19 09:00 Pepcid PO 20 mg BID BO Administration Methylprednisolone Sodium Succinate 40 mg 07/27/19 14:00 07/29/19 13:27 Solu-Medrol IVP 40 mg Q8HR BO Administration - Exam General Appearance: NAD, awake alert Eye: anicteric sclera ENT: normocephalic atraumatic, moist mucosa Neck: supple, symmetric, no lymphadenopathy Heart: no murmur, no gallops, no rubs Respiratory: CTAB, no wheezes, no rales, no ronchi, normal chest expansion Gastrointestinal: soft, non-tender, no guarding, no rigidity Extremities: no edema Skin: no lesions, no rashes Neurological: cranial nerve grossly intact, no focal deficits Musculoskeletal: generalized weakness Psychiatric: normal behavior, A&O x 3 Hosp A/P (1) Atypical chest pain Code(s): R07.89 - OTHER CHEST PAIN Status: Acute (2) Bronchitis Code(s): J40 - BRONCHITIS, NOT SPECIFIED ACUTE OR CHRONIC Status: Acute (3) Chest pain Code(s): R07.9 - CHEST PAIN, UNSPECIFIED Status: Acute (4) Smoking 1/2 pack a day or less Code(s): F17.210 - NICOTINE DEPENDENCE, CIGARETTES, UNCOMPLICATED Status: Acute (5) Subendocardial infarction, initial episode of care Code(s): I21.4 - NON-ST ELEVATION (NSTEMI) MYOCARDIAL INFARCTION Status: Acute - Plan Plan: medical unit telemetry cardiology consultation, recommendations appreciated post cath care patient with discomfort in the right groin at cath site, there is no palpable masses or lesion ultrasound arterial, right groin negative for aneurysm or pseudoaneurysm Echo cardiac regimen Hold beta balta with bradycardia per cardiology blood pressure control Start depression/ anxiety medication blood sugar control abstinence from tobacco use, counseling provided G.I. prophylaxis DVT prophylaxis
[2019-07-29] MEDS ORDERED: Atorvastatin Calcium 40 MG TAB PO SCH (21:00)
[2019-07-30] MEDS: methylPREDNISolone Sod Succ 40 MG VIAL IVP SCH (05:57)
[2019-07-30] MEDS ORDERED: Lisinopril 2.5 MG TAB PO SCH ×2 (09:00→13:00)
[2019-07-30] MEDS: Aspirin 325 mg Enteric Coated Tablet PO SCH (09:41)
[2019-07-30] MEDS: Amoxicillin/Potassium Clav 875 MG TAB PO SCH (09:41)
[2019-07-30] MEDS: Famotidine 20 MG TAB PO SCH (09:41)
--- NOTE | 2019-07-30 12:51 | PDOC.CPN ---
- Subjective Date: 07/30/19 Time: 13:15 Interval history: Ms. Paz is anxious to go home, feeling "okay". Has some anxiety about going home, really going to try and abstain from tobacco, going home with her daughter. Some shortness of breath with exertion, no change since last seen. Denies any orthopnea, PND, or nocturnal cough. Denies chest pain or tightness. Right groin site remains slightly tender, no knot, feels like this is improving. - Review of Systems General: denies: fever/chills, weight/appetite/sleep changes, night sweats, fatigue Respiratory: reports: shortness of breath Cardiovascular: denies: chest pain, palpitation, edema, paroxysmal nocturnal dyspnea, orthopnea Gastrointestinal: denies: nausea, vomiting, diarrhea, constipation, abd pain, GI bleeding Musculoskeletal: reports: pain (right groin LHC site tender) - Objective Allergies/Adverse Reactions: Allergies Allergy/AdvReac Type Severity Reaction Status Date / Time No Known Allergies Allergy Verified 07/27/19 17:19 Visit Medications: Current Medications Acetaminophen (Tylenol) 650 mg PO Q4H PRN PRN Reason: Headache/Fever/Mild Pain (1-3) Last Admin: 07/29/19 21:14 Dose: 650 mg Acetaminophen/Codeine Phosphate (Tylenol #3) 1 tab PO Q4H PRN PRN Reason: Mild Pain (1-3) Last Admin: 07/27/19 20:39 Dose: 1 tab Acetaminophen/Codeine Phosphate (Tylenol #3) 2 tab PO Q4H PRN PRN Reason: Moderate Pain (4-6) Hydrocodone Bitart/Acetaminophen ([place] 5/325) 1 tab PO Q4H PRN PRN Reason: Moderate Pain (4-6) Albuterol/Ipratropium (Duoneb) 3 ml NEB [id number] [facility] Last Admin: 07/30/19 08:00 Dose: Not Given Amoxicillin/Clavulanate Potassium (Augmentin) 875 mg PO BID [facility] Last Admin: 07/30/19 09:41 Dose: 875 mg Aspirin (Ecotrin) 325 mg PO DAILY [facility] Last Admin: 07/30/19 09:41 Dose: 325 mg Atorvastatin Calcium (Lipitor) 40 mg PO HS [facility] Last Admin: 07/29/19 21:11 Dose: 40 mg Benzonatate (Tessalon) 200 mg PO Q4H PRN PRN Reason: Cough Last Admin: 07/29/19 21:14 Dose: 200 mg Bisacodyl (Dulcolax) 10 mg [place] DAILYPRN PRN PRN Reason: Constipation Famotidine (Pepcid) 20 mg PO BID [facility] Last Admin: 07/30/19 09:41 Dose: 20 mg Guaifenesin/Dextromethorphan (Robitussin Dm) 15 ml PO Q4H PRN PRN Reason: Cough Lisinopril (Zestril) 5 mg PO DAILY [facility] Nitroglycerin (Nitrostat) 0.4 mg SL Q5MIN PRN PRN Reason: Chest Pain Ondansetron HCl (Zofran) 4 mg IVP Q6H PRN PRN Reason: Nausea/Vomiting Senna/Docusate Sodium (Senokot S) 2 tab PO BIDPRN PRN PRN Reason: Constipation Sertraline HCl (Zoloft) 25 mg PO [facility] Vital Signs & Weight: Vital Signs Temp Pulse Pulse Pulse Resp BP BP 07/30/19 12:36 64 65 149/73 H 136/70 07/30/19 11:53 98.0 F 66 16 07/30/19 09:37 98.4 F 65 16 07/30/19 03:15 98.0 F 51 L 18 BP BP Pulse Ox Pulse Ox Pulse Ox 07/30/19 12:36 100 98 07/30/19 11:53 156/72 H 98 07/30/19 09:37 141/78 H 98 07/30/19 03:15 116/52 L 96 Admit Weight 135 lb 4.8 oz Weight 134 lb 4.8 oz - Quality Measures Condition: Heart Failure CV meds: Beta Aries: No, BRIAN/ARB: Yes, Statin: No, ASA: Yes, Plavix/Effient/ Brilinta: No, Anticoagulant: No - Medication Contraindications No Beta Aries reason: Beta aries not tolerated (Isolated episode bradycardia , symptomatic) - Physical Exam General: alert & oriented x3, appears well, no apparent distress HEENT: mucus membranes moist Neck: supple neck, no JVD/HJR Cardiac: regular rate and rhythm, no murmur, S1/S2 Lungs: clear to auscultation, normal breath sounds, no wheeze, rales, rhonchi Neuro: grossly intact Abdomen: active bowel sounds, soft Extremities: no edema Skin: clear, other (right groin site s/ masses, hematoma, or ecchymosis) - Labs Result Diagrams: 07/28/19 04:31 07/28/19 04:31 Troponin/CKMB CK-MB (CK-2) 2.6 ng/mL (0-6.6) 07/27/19 07:08 Troponin I 1.212 ng/mL (< 0.028) H* 07/27/19 13:28 - Telemetry Sinus rhythms and dysrhythmias: sinus rhythm (HR 52-68) - Assessment/Plan Assessment/Plan: 1. Takotsubo CM 2. Mild CAD 3. Mixed Hyperlipidemia 4. Type 2 demand ishcemia. 5. Tobacco use 6. COPD PLAN: -EF at 35-40%, no indication for life vest -Continue low dose ACEi, titrate up as tolerated. No symptomatic bradycardia off BB. -Continue statin. -Discussed importance of complete tobacco cessation, dietary modification. -Right groin U/S negative for pseudoaneurysm Okay to discharge home, patient will need to follow-up with Dr. Thornton in 10- 14 days.
[2019-07-30 16:03] VITALS: BP 124/58; TEMP 98.2
--- NOTE | 2019-07-31 03:18 | DIS ---
DATE OF ADMISSION: 07/27/2019 DATE OF DISCHARGE: 07/30/2019 REASON FOR HOSPITALIZATION: Chest pain and shortness of breath. SIGNIFICANT FINDINGS: The patient was found to have cardiomyopathy diagnosed as takotsubo cardiomyopathy with a reduced ejection fraction of 35% and grade 2/3 diastolic dysfunction. PROCEDURES PERFORMED AND TREATMENTS RENDERED: Ms. Paz is a very pleasant 64-year-old female who presented to [facility] in [facility] on 07/27/2019. The patient was admitted to the medical unit with telemetry for close management. The patient went for cardiac catheterization on 07/27/2019-please see full operative report from Dr. Thornton for details. The patient tolerated the procedure well without intraoperative complications. There was no acute stent placement and there was mild coronary artery disease. The patient with reduced ejection fraction was recommended echocardiogram, which confirmed a reduced ejection fraction of 35% to 40% with diastolic dysfunction also at a grade of 2/3 diastolic dysfunction. The patient with apical akinesis consistent with takotsubo cardiomyopathy. The patient was started on a cardiomyopathy regimen appropriately per chemical treatment plant technician and this was adjusted throughout her hospitalization. The patient was started on metoprolol and had episodes of bradycardia with lightheadedness and dizziness, and beta balta therapy was contraindicated for this patient secondary to not tolerating symptoms. An BRIAN inhibitor and statin medication were started per chemical treatment plant technician. The patient was recommended safe for discharge by Cardiology on 07/30/2019 with a close followup in the outpatient setting. The patient will require repeat echocardiogram in the upcoming weeks in the cardiology clinic. The patient will follow up with Cardiology and primary care physician in the next 1-2 weeks. CONDITION ON DISCHARGE: Stable. SPECIFIC INSTRUCTIONS FOR THE PATIENT/FAMILY: 1. The patient recommended to take cardiomyopathy regimen as directed by chemical treatment plant technician, this is to be adjusted as appropriately in the Cardiology Clinic. 2. The patient recommended to have repeat echocardiogram in the upcoming weeks as directed by chemical treatment plant technician to monitor cardiomyopathy for improvement with medical management. 3. The patient recommended follow up with Cardiology in the upcoming weeks in the outpatient setting. 4. The patient recommended follow up with primary care physician in the upcoming weeks. 5. The patient recommended to abstain from tobacco use. 6. The patient recommended to take all other medications as directed by primary care physician and Cardiology. 7. The patient recommended to return to acute care hospital immediately if signs or symptoms return, worsen, or any other new symptoms occur. DISCHARGE MEDICATIONS: Please see full discharge medication list for details. 1. Lisinopril 2.5 mg 1 tablet p.o. daily. 2. Nicotine patch 14 mg transdermal daily. 3. Sertraline 25 mg 1 tablet p.o. at bedtime. 4. Atorvastatin 40 mg 1 tablet p.o. at bedtime. 5. Aspirin 325 mg 1 tablet p.o. daily. 6. Amoxicillin/clavulanic acid 875 mg 1 tablet p.o. b.i.d. for an additional four days, 8 tablets. 7. Spiriva 1.25 mcg inhalation 1 puff p.o. b.i.d. TIME SPENT: Greater than 36 minutes spent coordinating care and discharge process for this patient. Job ID: [id number]
[2019-07-31] MEDS ORDERED: Lisinopril 5 MG TAB PO SCH (09:00)
--- NOTE | 2019-08-01 07:34 | PQF ---
Sima Paz ERIK [id number] CLINICAL DOCUMENTATION CLARIFICATION FORM: POST DISCHARGE Addendum to original discharge summary date: ____ Late entry note date: __ DATE: 08/01/2019 ATTN: VALORIE HESS Please exercise your independent, professional judgment in responding to the clarification form. Clinical indicators are provided on the bottom of this form for your review Please check appropriate box(s): Conflicting documentation was noted in the Medical Record, please clarify if patient is being treated/monitored for: [ ] Type 2 Myocardial infarction [ XX ] Type 2 Demand ischemia [ ] Other diagnosis [ ] Unable to determine For continuity of documentation, please document condition throughout progress notes and discharge summary. Thank You. CLINICAL INDICATORS - SIGNS / SYMPTOMS/ LABS - COPD exacerbation with likely type 2 myocardial infarction- H&P, 07/27, Remy Cooper MD - Non-Q wave myocardial infarction- Consultation report, 07/27, Shankar Thornton MD - Type 2 demand ischemia- Cardiology PN, 07/28, Romero Hernandez MD - Subendocardial infarction, initial episode of care- Hospital PN, 07/28, VALORIE HESS DO RISK FACTORS - Takotsubo cardiomyopathy- Cardiology PN, 07/28, Romero Hernandez MD - Mild CAD- DS, 07/30, VALORIE HESS DO TREATMENT - Heparin.IV- AUG, 07/27 - Aspirin.PO- AUG, 07/27 (This form is maintained as a part of the permanent medical record) 2014 [employer]. All Rights Reserved Bhumi [email or web address]
== END 2019-07-30 16:55 | disposition home or self-care (01) | DRG 287 ==
LOC: ERS 05:39 → ERHOLD 10:05 → 2NO 14:21
PROVIDERS: ADMIT Internal Medicine; ATTEND Internal Medicine
PROC: 4A023N7 Measurement of Cardiac Sampling and Pressure, Left Heart, Percutaneous Approach (ICD-10-PCS; principal; 2019-07-27)
PROC: B2111ZZ Fluoroscopy of Multiple Coronary Arteries using Low Osmolar Contrast (ICD-10-PCS; 2019-07-27)
PROC: B2151ZZ Fluoroscopy of Left Heart using Low Osmolar Contrast (ICD-10-PCS; 2019-07-27)
DX: I51.81 Takotsubo syndrome (principal); J44.1 Chronic obstructive pulmonary disease with (acute) exacerbation; I24.8 Other forms of acute ischemic heart disease; I25.10 Atherosclerotic heart disease of native coronary artery without angina pectoris; I10 Essential (primary) hypertension; F17.200 Nicotine dependence, unspecified, uncomplicated; K21.9 Gastro-esophageal reflux disease without esophagitis; E78.2 Mixed hyperlipidemia
CPT/HCPCS: 36415; 71045; 71275; 72191; 74175; 76705; 76942; 80048; 80053; 80061; 82550; 82553; 83690; 83880; 84484; 85025; 90471; 90686; 93005; 93306; 93458; 93798; 93926; 94760; 96372; 96374; 99152; 99153; C1760; C1769; G0008; J0461; J1644; J1650; J2001; J2250; J2270; J2920; J3010; J7620; Q9967

== ENCOUNTER 2019-08-11 21:21 | Emergency (ER) | payer OTHER ==
[2019-08-11 21:53] LABS: Bacteria/HPF 2+ HPF (None Seen); Bilirubin Negative (Negative); Blood, Urine 1+ (Negative); Clarity Clear (Clear); Glucose, Urine (Dipstick) Normal (Negative); Leukocyte 500 Leu/uL (Negative); Mucous/LPF Rare LPF (<2+); Nitrite Negative (Negative); Protein, Urine (Dipstick) 50 mg/dL (Neg-Trace); Renal Epithelial 0-3 HPF (None Seen); Squamous Epithelial 0-3 HPF (0-3); WBC/HPF Greater than 50 HPF (0-3)
[2019-08-11] MEDS ORDERED: Acetaminophen 500 MG TAB ONE (22:18)
[2019-08-11 22:20] LABS: #Basophils 0.1 thou/uL (0.0-0.2); #Eosinphils 0.2 thou/uL (0.0-0.7); #Lymphocytes 2.4 thou/uL (1.20-3.40); #Monocytes 0.7 thou/uL (0.11-0.59); #Neutrophils 5.1 thou/uL (1.40-6.50); %Basophils 0.7 % (0.0-1.0); %Eosinophils 1.8 % (0.0-10.0); %Lymphocytes 28.2 % (21.0-51.0); %Monocytes 8.8 % (0.0-10.0); %Neutrophils 60.5 % (42.0-75.0); Hemoglobin 11.7 g/dL (12.0-16.0); Mean Corpuscular HGB CONC 33.1 g/dL (32.0-36.0); Mean Platelet Volume 7.3 fL (7.4-10.4); Platelet Count 221 thou/uL (130-400); RBC Distribution Width 15.6 % (11.5-14.5); Red Blood Cell (RBC) Count 2.85 mill/uL (4.20-5.40); White Blood Cell (WBC) Count 8.4 thou/uL (4.8-10.8)
[2019-08-11] MEDS ORDERED: cefTRIAXone\\ROCEPHIN 1 GM VIAL ONE (22:30)
[2019-08-11 22:42] LABS: ALT (SGPT) 16 U/L (8-55); AST (SGOT) 16 U/L (5-34); Albumin 3.9 g/dL (3.4-4.8); Alkaline Phosphatase 79 U/L (40-110); Anion Gap 9 mmol/L (10-20); BUN (Urea Nitrogen) 17 mg/dL (9.8-20.1); Bilirubin, Total 0.4 mg/dL (0.2-1.2); Calc. Creatinine Clearance 0 mL/min (70-130); Calcium 9.5 mg/dL (7.8-10.44); Carbon Dioxide 29 mmol/L (23-31); Chloride 106 mmol/L (98-107); Estimated GFR-MDRD Greater than 90; Globulin 2.8 g/dL (2.4-3.5); Glucose 107 mg/dL (80-115); Lipase 53 U/L (8-78); Protein, Total 6.7 g/dL (6.0-8.3); Sodium 140 mmol/L (136-145)
== END 2019-08-11 23:58 | disposition home or self-care (01) ==
LOC: ERS 21:21
DX: N10 Acute pyelonephritis (principal); J44.9 Chronic obstructive pulmonary disease, unspecified; I10 Essential (primary) hypertension; F17.210 Nicotine dependence, cigarettes, uncomplicated; I25.2 Old myocardial infarction; Z79.82 Long term (current) use of aspirin; Z79.899 Other long term (current) drug therapy
CPT/HCPCS: 80053; 81003; 81015; 83690; 85025; 96365; J0696

== ENCOUNTER 2019-08-12 17:52 | Observation (INO) | payer OTHER ==
[2019-08-12] MEDS ORDERED: Nitroglycerin 0.4 MG TAB 1 EACH ONE (18:08)
--- NOTE | 2019-08-12 18:21 | RAD ---
PORTABLE CHEST: 08/12/19 PROVIDED CLINICAL HISTORY: Chest pain. FINDINGS: Comparison 07/27/19. Cardiac and mediastinal silhouette is unchanged in appearance. Vascular calcification is noted involv ing the aortic arch. No focal consolidation, pleural fluid, or pneumothorax apparent. IMPRESSION: No evidence for an acute cardiopulmonary process. POS: RICK
[2019-08-12 18:52] LABS: #Eosinphils 0.1 thou/uL (0.0-0.7); #Lymphocytes 1.8 thou/uL (1.20-3.40); #Monocytes 0.4 thou/uL (0.11-0.59); #Neutrophils 4.9 thou/uL (1.40-6.50); %Basophils 0.6 % (0.0-1.0); %Lymphocytes 24.6 % (21.0-51.0); %Monocytes 5.8 % (0.0-10.0); Hemoglobin 11.4 g/dL (12.0-16.0); Mean Corpuscular HGB CONC 34.6 g/dL (32.0-36.0); Mean Platelet Volume 7.6 fL (7.4-10.4); Platelet Count 209 thou/uL (130-400); RBC Distribution Width 15.4 % (11.5-14.5); Red Blood Cell (RBC) Count 2.64 mill/uL (4.20-5.40); White Blood Cell (WBC) Count 7.3 thou/uL (4.8-10.8)
[2019-08-12] MEDS ORDERED: Nitroglycerin 2% Ointment 1 INCH/1 GM Packet ONE (18:54)
[2019-08-12] MEDS ORDERED: Aspirin Chewable 81 MG TAB ONE (18:54)
[2019-08-12 19:06] LABS: ALT (SGPT) 17 U/L (8-55); AST (SGOT) 21 U/L (5-34); Albumin 3.7 g/dL (3.4-4.8); Alkaline Phosphatase 93 U/L (40-110); Anion Gap 11 mmol/L (10-20); BUN (Urea Nitrogen) 17 mg/dL (9.8-20.1); Bilirubin, Total 0.3 mg/dL (0.2-1.2); Calc. Creatinine Clearance 0 mL/min (70-130); Carbon Dioxide 25 mmol/L (23-31); Chloride 111 mmol/L (98-107); Estimated GFR-MDRD Greater than 90; Glucose 139 mg/dL (80-115); Protein, Total 6.7 g/dL (6.0-8.3); Sodium 143 mmol/L (136-145)
[2019-08-12] MEDS ORDERED: Sodium Chloride 0.9% 100 ML ONE (20:49)
[2019-08-12] MEDS ORDERED: Acetaminophen 500 MG TAB ONE (20:49)
[2019-08-12] MEDS ORDERED: cefTRIAXone\\ROCEPHIN 1 GM VIAL ONE (20:49)
[2019-08-12] MEDS ORDERED: Morphine 2 MG/ML SYRINGE ONE (20:57)
[2019-08-12 22:20] LABS: CKMB 1.6 ng/mL (0-6.6)
[2019-08-12 22:33] VITALS: BMI 24.3
[2019-08-12] MEDS ORDERED: Acetaminophen 325 MG TAB PO PRN (23:05)
[2019-08-12] MEDS ORDERED: Nitroglycerin 0.4 MG TAB (25 Tab Bottle) PO PRN (23:05)
[2019-08-12] MEDS ORDERED: Calcium Carbonate 500 MG ChewTAB PO PRN (23:05)
[2019-08-12] MEDS ORDERED: Ondansetron PF 4 MG/2 ML Vial IVP PRN (23:05)
[2019-08-12] MEDS ORDERED: Ondansetron ODT 4 MG TAB PO PRN (23:05)
[2019-08-12] MEDS ORDERED: TIOTROPIUM BROMIDE 2.5 MCG IH PRN (23:08)
[2019-08-12] MEDS ORDERED: Atorvastatin Calcium 40 MG TAB PO SCH (23:30)
--- NOTE | 2019-08-13 00:17 | HP ---
PRIMARY CARE PHYSICIAN: [facility]. CHIEF COMPLAINT: Chest discomfort. HISTORY OF PRESENT ILLNESS: Patient is a 64-year-old female with mild coronary artery disease with recent diagnosis of takotsubo cardiomyopathy, presented to the emergency room with above complaints. The chest discomfort started earlier today after an argument with other family members. She describes the pain as tightness with radiation between her scapula. She denies any relieving factor. The pain sometimes get worse with deep breathing. She denies any nausea, vomiting, diaphoresis, or syncope. She denies recent immobilization or travel, except for recent hospitalization. She is compliant with all of her medications as well as fluid restriction. No cough, wheezing, or heartburn reported. PAST MEDICAL HISTORY: 1. Chronic systolic heart failure, ejection fraction 35% to 40% secondary to takotsubo cardiomyopathy. 2. Mild coronary artery disease with recent cardiac catheterization in July of 2019. 3. Hyperlipidemia. 4. Tobacco dependence. Patient quit smoking two weeks ago. 5. COPD. 6. Bradycardia secondary to beta blockers. PAST SURGICAL HISTORY: Recent cardiac catheterization. ALLERGIES: NO KNOWN DRUG ALLERGIES. CURRENT HOME MEDICATION: 1. Lisinopril 2.5 mg daily. 2. Spiriva daily. 3. Vitamin B12 of 2500 mcg four times a day. 4. Keflex 500 mg twice daily, started yesterday for UTI. 5. Aspirin 325 mg daily. 6. Lipitor 40 mg at bedtime. 7. Zoloft 25 mg daily. SOCIAL HISTORY: Patient currently lives at home with her family. She recently quit smoking. She denies any alcohol or drug use. No suicidal ideation. FAMILY HISTORY: Negative for premature coronary artery disease. REVIEW OF SYSTEMS: All other review of systems reviewed and were found negative. PHYSICAL EXAMINATION: VITAL SIGNS: Temperature 98.4, respirations 16, pulse of 75, blood pressure of 167/74, and O2 saturation 100% on room air. GENERAL: A 64-year-old female, in no apparent distress. Her chest discomfort has resolved. HEENT: Head is atraumatic and normocephalic. Sclerae anicteric. Moist mucous membranes. No oral lesion. NECK: Supple. No JVD appreciated. No carotid bruit. LUNGS: Clear to auscultation bilaterally. No wheezing, rales, or rhonchi. HEART: S1 and S2 present. Regular rate and rhythm. No rubs or gallops. ABDOMEN: Soft. Bowel sounds present. No rebound or guarding. No costovertebral angle tenderness. EXTREMITIES: No edema or calf tenderness. NEUROLOGY: Grossly nonfocal. Moves all 4 extremities. PSYCHIATRY: Alert, awake, and oriented x3. SKIN: Warm and dry. LYMPH NODES: No palpable lymph nodes in the neck. PERIPHERAL VASCULAR: Radial pulses palpable bilaterally. MUSCULOSKELETAL: No joint swelling or tenderness. LABORATORY FINDINGS: 1. Troponin 0.013. Repeat troponin 0.034. CK-MB was 1.6. 2. EKG by my review showed sinus rhythm with T-wave inversions in lateral leads. 3. Chest x-ray by my review was negative for infiltrate or edema. 4. Recent records were reviewed. IMPRESSION: 1. Chest discomfort along with shortness of breath that started after an argument, rule out acute coronary syndrome. 2. Elevated D-dimer with history of recent hospitalization, rule out pulmonary embolism. 3. Former smoker, quit two weeks ago. 4. Chronic systolic heart failure, ejection fraction 35% to 40% secondary to takotsubo cardiomyopathy. Patient is not on beta blockers due to bradycardia last admission. 5. Anxiety. 6. Hyperlipidemia. 7. Urinary tract infection diagnosed yesterday in the emergency room. 8. Chronic anemia due to nutritional deficiency (vitamin B12 deficiency, currently on vitamin B12 supplementation). 9. Chronic obstructive pulmonary disease. PLAN: 1. We will resume home medications. CT angiogram will be added to rule out pulmonary embolism. We will continue BRIAN inhibitor along with statins and Zoloft. Resume Keflex, which was started yesterday in the emergency room for UTI. 2. Patient was counseled on congestive heart failure and importance of fluid restriction. 3. Patient understands the above plan of care. Job ID: [id number]
[2019-08-13] MEDS: Cyanocobalamin (Vitamin B-12) 1,000 MCG TAB PO SCH ×2 (07:34→12:30)
[2019-08-13 07:53] VITALS: TEMP 97.7
[2019-08-13] MEDS ORDERED: Cephalexin 250 MG CAP PO SCH (08:00)
[2019-08-13] MEDS ORDERED: Cyanocobalamin (Vitamin B-12) 1,000 MCG TAB PO SCH (09:00)
[2019-08-13] MEDS ORDERED: Enoxaparin Sodium 40 MG/0.4 ML SYRINGE SC SCH (09:00)
[2019-08-13] MEDS ORDERED: Aspirin 325 mg Enteric Coated Tablet PO SCH (09:00)
[2019-08-13] MEDS ORDERED: Folic Acid 1 MG TAB PO SCH (09:00)
[2019-08-13] MEDS ORDERED: Lisinopril 2.5 MG TAB PO SCH (09:00)
[2019-08-13] MEDS ORDERED: Multivit, Therapeutic 1 TAB PO SCH (09:00)
[2019-08-13] MEDS ORDERED: Aspirin 81 mg Enteric Coated Tablet PO SCH (09:00)
[2019-08-13] MEDS ORDERED: Famotidine 20 MG TAB PO SCH (09:00)
--- NOTE | 2019-08-13 09:25 | CT ---
CT PULMONARY ANGIOGRAM WITH IV CONTRAST AND 3-D POSTPROCESSING: HISTORY:Shortness of breath, chest pain, elevated d-dimer FINDINGS: There is good contrast opacification of the pulmonary arterial vasculature without filling defects to suggest pulmonary embolism. The thoracic aorta is well opacified without aneurysm or dissection. No pleural or pericardial effusions are seen. No pneumothoraces, focal areas of consolidation or lung nodules are noted. There are dependent change s in the posterior lung bases. There are degenerative changes in the spine. Upper abdominal tomograms demonstrate no significant abnormalities. IMPRESSION: No CT evidence of pulmonary embolism.
[2019-08-13 12:33] VITALS: BP 124/56
[2019-08-13] MEDS ORDERED: Iopamidol-370 76% 500 ML 1 ML ONE (14:27)
[2019-08-13] MEDS ORDERED: Atorvastatin Calcium 40 MG TAB PO SCH (21:00)
[2019-08-13] MEDS ORDERED: cefTRIAXone\\ROCEPHIN 1 GM in Sodium Chloride 0.9% 100 ML IVPB SCH (21:00)
--- NOTE | 2019-08-14 15:20 | DIS ---
DATE OF ADMISSION: 08/12/2019 DATE OF DISCHARGE: 08/13/2019 DISCHARGE DIAGNOSES: 1. Chest pain. 2. Smoking history. 3. Elevated D-dimer. 4. Mild elevated troponin. 5. Takotsubo. HOSPITAL COURSE: The patient is a 64-year-old female, who initially presented to the hospital on 08/11 with complaints of chest pain. The patient apparently was in an argument with her family member. She recently had a cardiac cath in July of this year, that had minimal coronary artery disease. She was diagnosed with apical ballooning consistent with takotsubo cardiomyopathy. The patient states that she has stopped smoking and her EF is 35% to 40%. Given her elevated D-dimer, she underwent a CTA which was negative for PE. At this time, the patient stated that she felt well. She was discharged home. She will follow up with her Primary. I have advised her to continue to not smoke and no alcohol beverages. HOME MEDICATIONS: Have not been changed. She is going to be on, 1. Sertraline 25 mg at bedtime. 2. Keflex 500 mg twice a day for recent UTI. 3. Atorvastatin 40 mg daily. 4. Vitamin B12 . 5. Lisinopril 2.5 mg daily. 6. Aspirin 325 daily. 7. Spiriva 2.5 inhalation daily. PHYSICAL EXAMINATION: VITAL SIGNS: Temperature of 97.7, pulse 63, respirations 20, oxygen saturations 97% on room air, blood pressure 124/56. GENERAL: She is awake, alert, and oriented x3. Does not appear in distress. CV: S1, S2 present. No murmurs, rubs, gallops. Again, she will be discharged home. She will follow up with her Primary. Job ID: [id number]
== END 2019-08-13 13:15 | disposition home or self-care (01) ==
LOC: ERS 17:52 → 2SW 21:07
PROVIDERS: ADMIT Family Medicine; ATTEND Family Medicine
DX: R07.89 Other chest pain (principal); R79.89 Other specified abnormal findings of blood chemistry; I25.10 Atherosclerotic heart disease of native coronary artery without angina pectoris; I50.22 Chronic systolic (congestive) heart failure; J44.9 Chronic obstructive pulmonary disease, unspecified; E78.5 Hyperlipidemia, unspecified; F41.9 Anxiety disorder, unspecified; N39.0 Urinary tract infection, site not specified; Z87.891 Personal history of nicotine dependence; Z79.82 Long term (current) use of aspirin; Z79.899 Other long term (current) drug therapy
CPT/HCPCS: 36415; 71045; 71275; 80053; 82550; 82553; 84484; 85025; 85379; 93005; 94760; 96365; 96372; 96375; G0378; J0696; J1650; J2270; J3490; Q9967

== ENCOUNTER 2019-09-28 14:32 | Emergency (ER) | payer OTHER, SELFPAY ==
[2019-09-28 14:57] LABS: #Basophils 0.1 thou/uL (0.0-0.2); #Eosinphils 0.4 thou/uL (0.0-0.7); #Lymphocytes 1.9 thou/uL (1.20-3.40); #Monocytes 0.4 thou/uL (0.11-0.59); #Neutrophils 4.3 thou/uL (1.40-6.50); %Eosinophils 5.1 % (0.0-10.0); %Lymphocytes 27.4 % (21.0-51.0); %Monocytes 6.2 % (0.0-10.0); %Neutrophils 60.4 % (42.0-75.0); Hemoglobin 12.7 g/dL (12.0-16.0); Mean Corpuscular HGB CONC 34.2 g/dL (32.0-36.0); Mean Platelet Volume 8.4 fL (7.4-10.4); Platelet Count 191 thou/uL (130-400); RBC Distribution Width 13.9 % (11.5-14.5); Red Blood Cell (RBC) Count 3.34 mill/uL (4.20-5.40)
[2019-09-28 15:18] LABS: ALT (SGPT) 47 U/L (8-55); AST (SGOT) 25 U/L (5-34); Alkaline Phosphatase 153 U/L (40-110); Anion Gap 12 mmol/L (10-20); BUN (Urea Nitrogen) 15 mg/dL (9.8-20.1); Bilirubin, Total 0.3 mg/dL (0.2-1.2); Calc. Creatinine Clearance 0 mL/min (70-130); Calcium 9.4 mg/dL (7.8-10.44); Carbon Dioxide 27 mmol/L (23-31); Chloride 105 mmol/L (98-107); Estimated GFR-MDRD Greater than 90; Globulin 2.8 g/dL (2.4-3.5); Glucose 187 mg/dL (80-115); Potassium 3.8 mmol/L (3.5-5.1); Protein, Total 6.8 g/dL (6.0-8.3); Sodium 140 mmol/L (136-145)
--- NOTE | 2019-09-28 16:02 | RAD ---
CHEST ONE VIEW PORTABLE: 09/28/19 HISTORY: Shortness of breath and cough. COMPARISON: 08/12/2019. FINDINGS: Heart size is normal. The lungs are clear. No confluent pneumonia, overt edema, or pleural effusion. IMPRESSION: No significant acute intrathoracic disease. Atherosclerosis of the aorta. Stable exam. POS: RRE
[2019-09-28 16:45] LABS: Bilirubin Negative (Negative); Blood, Urine Negative (Negative); Clarity Clear (Clear); Glucose, Urine (Dipstick) Normal (Negative); Leukocyte Negative Leu/uL (Negative); Nitrite Negative (Negative); Protein, Urine (Dipstick) Negative (Neg-Trace); Urobilinogen Normal mg/dL (Less than 2)
[2019-09-28] MEDS ORDERED: Acetaminophen 500 MG TAB ONE (18:33)
--- NOTE | 2019-09-28 20:08 | CT ---
CTA OF THE CHEST WITH CONTRAST: 09/28/19 COMPARISON: 08/13/19 HISTORY: Shortness of breath after visiting urgent care earlier today. Dyspnea. TECHNIQUE: Multiple contiguous axial images were obtained in a CTA of the chest with contrast per pulmonary embo lism protocol. 3D oblique MIP reformats and direct coronal reformats were performed. FINDINGS: the pulmonary arteries are well opacified without filling defects to suggest pulmonary emboli. The he art is normal in size without focal cardiac abnormality. Calcifications are seen in the coronary serenity violeta and aorta. No hilar or mediastinal lymphadenopathy are appreciated. No pneumothorax or pleural effusion are seen. Atelectasis is seen in both lung bases. No focal infilt rates or suspicious pulmonary nodules are seen. The visualized subdiaphragmatic structures are unremarkable. The chest wall soft tissues are unremark able. Degenerative changes are seen in the spine. IMPRESSION: No evidence of pulmonary thromboembolism. POS: EAA
--- NOTE | 2019-09-29 15:19 | EKG ---
Test Reason : Blood Pressure : / mmHG Vent. Rate : 062 BPM Atrial Rate : 062 BPM P-R Int : 164 ms QRS Dur : 086 ms QT Int : 414 ms P-R-T Axes : 067 040 055 degrees QTc Int : 420 ms Normal sinus rhythm Normal ECG Confirmed by XIMENA BERNAL ([id number]), commercial production editor RENITA ABEBE ([id number]) on 09/29/2019 3:18:57 PM Referred By: Confirmed By:XIMENA Thompson
== END 2019-09-28 21:18 | disposition home or self-care (01) ==
LOC: ERS 14:32
DX: R06.00 Dyspnea, unspecified (principal); I10 Essential (primary) hypertension; J44.9 Chronic obstructive pulmonary disease, unspecified; I25.2 Old myocardial infarction; Z87.891 Personal history of nicotine dependence; Z79.82 Long term (current) use of aspirin; Z79.899 Other long term (current) drug therapy
CPT/HCPCS: 36415; 71045; 71275; 80053; 81003; 84484; 85025; 85379; 93005

== ENCOUNTER 2019-11-26 08:54 | Emergency (ER) | payer SELFPAY ==
[2019-11-26] MEDS ORDERED: Promethazine HCl 25 MG/ML VIAL ONE (08:57)
[2019-11-26] MEDS ORDERED: Ketorolac Tromethamine 30 MG/ML VIAL ONE (09:19)
[2019-11-26] MEDS ORDERED: HYDROcodone/Acetaminophen 5/325 mg Tablet ONE (09:19)
[2019-11-26] MEDS ORDERED: Acetaminophen 500 MG TAB ONE (09:19)
--- NOTE | 2019-11-26 11:40 | RAD ---
LUMBAR SPINE THREE VIEWS: HISTORY: Low back pain. FINDINGS: There are degenerative changes in the lower lumbar spine with grade 1 anterolisthesis of L5 over S1, which was also seen on the CT scan of 07/27/19. No acute fracture or bony destruction is identified. There are vascular calcifications. POS: MZA
== END 2019-11-26 13:02 | disposition home or self-care (01) ==
LOC: ERS 08:54
DX: M54.5 Low back pain (principal); I10 Essential (primary) hypertension; I25.2 Old myocardial infarction; J44.9 Chronic obstructive pulmonary disease, unspecified; Z87.891 Personal history of nicotine dependence; Z79.82 Long term (current) use of aspirin; Z79.899 Other long term (current) drug therapy
CPT/HCPCS: 72100; 96372; J1885; J2550

== ENCOUNTER 2019-12-27 10:01 | Emergency (ER) | payer OTHER ==
[2019-12-27 19:58] LABS: SARS-CoV-2 MS2 Positive; SARS-CoV-2 N Gene Positive; SARS-CoV-2 S Gene Positive; SARS-CoV-2 orf1ab Positive
== END 2019-12-27 10:56 | disposition home or self-care (01) ==
LOC: ERS 10:01
DX: U07.1 COVID-19 (principal); J44.9 Chronic obstructive pulmonary disease, unspecified; I10 Essential (primary) hypertension; I25.2 Old myocardial infarction; Z87.891 Personal history of nicotine dependence; Z79.82 Long term (current) use of aspirin; Z79.899 Other long term (current) drug therapy
CPT/HCPCS: 87635; 99283; U0003

== ENCOUNTER 2020-05-13 13:20 | Emergency (ER) | payer OTHER ==
--- NOTE | 2020-05-13 14:49 | RAD ---
RADIOGRAPH CHEST 1 VIEW: DATE: 05/13/2020 HISTORY: 64-year-old female with chest tightness FINDINGS: There are no airspace densities, pulmonary edema, pneumothorax, or cardiomegaly. The lateral costophr enic angles are sharp. IMPRESSION: No acute cardiopulmonary findings.
[2020-05-13 15:45] LABS: #Basophils 0.1 thou/uL (0.0-0.2); #Eosinphils 0.1 thou/uL (0.0-0.7); #Lymphocytes 1.3 thou/uL (1.20-3.40); #Monocytes 0.4 thou/uL (0.11-0.59); #Neutrophils 5.6 thou/uL (1.40-6.50); %Basophils 0.8 % (0.0-1.0); %Eosinophils 0.8 % (0.0-10.0); %Lymphocytes 17.3 % (21.0-51.0); %Monocytes 4.9 % (0.0-10.0); %Neutrophils 76.2 % (42.0-75.0); Hemoglobin 15.1 g/dL (12.0-16.0); Mean Corpuscular HGB CONC 33.7 g/dL (32.0-36.0); Mean Corpuscular Hemoglobin 34.5 pg (27.0-31.0); Mean Platelet Volume 7.6 fL (7.4-10.4); Platelet Count 222 thou/uL (130-400); RBC Distribution Width 11.8 % (11.5-14.5); Red Blood Cell (RBC) Count 4.38 mill/uL (4.20-5.40); White Blood Cell (WBC) Count 7.4 thou/uL (4.8-10.8)
[2020-05-13 16:06] LABS: ALT (SGPT) 10 U/L (8-55); AST (SGOT) 13 U/L (5-34); Albumin 4.3 g/dL (3.4-4.8); Alkaline Phosphatase 99 U/L (40-110); Anion Gap 17 mmol/L (10-20); BUN (Urea Nitrogen) 12 mg/dL (9.8-20.1); Bilirubin, Total 0.5 mg/dL (0.2-1.2); Calc. Creatinine Clearance 0 mL/min (70-130); Calcium 9.8 mg/dL (7.8-10.44); Carbon Dioxide 26 mmol/L (23-31); Chloride 103 mmol/L (98-107); Glucose 100 mg/dL (80-115); Potassium 4.4 mmol/L (3.5-5.1); Protein, Total 7.3 g/dL (6.0-8.3); Sodium 142 mmol/L (136-145)
[2020-05-13] MEDS ORDERED: Meclizine HCl 25 MG TAB ONE (16:29)
== END 2020-05-13 18:20 | disposition home or self-care (01) ==
LOC: ERS 13:20
DX: R42 Dizziness and giddiness (principal); I25.2 Old myocardial infarction; J44.9 Chronic obstructive pulmonary disease, unspecified; I10 Essential (primary) hypertension; E78.00 Pure hypercholesterolemia, unspecified; I25.10 Atherosclerotic heart disease of native coronary artery without angina pectoris
CPT/HCPCS: 36415; 71045; 80053; 84484; 85025; 93005